=== PATIENT | male | born 1940 | race Caucasian/White ===

== ENCOUNTER → 2016-08-15 | Outpatient (CLI) | payer OTHER ==
[~2016-08-15] MED LIST: ACET-1311 PO; AMIT150T PO; APIX1TAB3 PO; CHOL1000 PO; CHOL2000 PO; CYAN100T PO; DIPH25CA65 PO; DOCU-94 PO; FOLI1TAB8 PO; FURO40TA3 PO; KETO2SHA TOP; MELA1TAB3 PO; METO25TA3 PO; MULT-330 PO; MULT-506 PO; NTRSLP4 SL; ONDA8TAB6 PO; PANT40TA PO; PROCRIT IM; PRT40 PO; RXC5 PO; SENN-65 PO; TAMS0.4C38 PO; TAMS0.4C59 PO
--- NOTE | 2016-08-15 11:58 | DIAGNOSTIC IMAGING REPORT ---
CT SOFT TISSUE NECK WITHOUT CT DOSE: 537.07 mGy.cm CLINICAL HISTORY: SWELLING RIGHT SIDE OF NECK TECHNIQUE: Imaging was performed without intravenous contrast. COMPARISON STUDY: CT scan of the cervical spine dated 07/02/2016 FINDINGS: Within the right lung apex medially, there is a partially solid and groundglass 14 mm apical pulmonary nodule. Peripheral tree-in-bud opacities in the right upper lobe, are likely inflammatory. This nodule remains similar in size from a CT scan performed February 2016 There is a partially calcified 3 cm nodule arising from the lower pole the right lobe of thyroid. No salivary gland masses are visualized. No mucosal space masses are visualized given the limitations of a noncontrast study. There is no pathologic adenopathy given the limitations of a noncontrast study. There is no evidence of airway compromise. There are no pathologic masses to correspond to the palpable abnormality within the right lateral neck. There is a severe scoliosis. 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 IMPRESSION: 1. There are no pathologic CT masses to correlate with the reported palpable abnormality within the right lateral neck 2. Relatively stable indeterminate partially solid and groundglass 14 mm right apical pulmonary nodule. Close follow-up recommended, as neoplasm cannot be excluded. 3. 3 cm right lobe thyroid nodule Electronically signed by: Jon Sesay M.D. 08/15/2016 11:56 AM
== END | disposition home or self-care (01) ==
LOC: C.CTS 10:57
PROVIDERS: ATTEND Hospitalist
DX: R22.1 Localized swelling, mass and lump, neck (principal); E04.1 Nontoxic single thyroid nodule

== ENCOUNTER → 2016-09-25 | Outpatient (CLI) | payer OTHER ==
[~2016-09-25] MED LIST changes: +FOLI1TAB7 PO; -FOLI1TAB8 PO
[2016-09-25 12:35] LABS: URINE APPEARANCE CLEAR (CLEAR); URINE BILIRUBIN NEG (NEG); URINE COLOR YELLOW; URINE NITRITE NEG (NEG); URINE PH 7.5 (4.5-7.5); URINE SPECIFIC GRAVITY 1.011 (1.000-1.030); UROBILINOGEN NEG (NEG); ZZUR CULT IF INDIC CLEAN CATCH NO
[2016-09-25 12:45] LABS: BLOOD UREA NITROGEN 21 mg/dl (7-18); BUN/CREATININE RATIO 12.6 (10-20); CALCIUM 11.1 mg/dl (8.5-10.1); CARBON DIOXIDE 31 mmol/L (21-32); CHLORIDE 106 mmol/L (98-107); GLUCOSE 88 mg/dl (70-99); MAGNESIUM 1.9 mg/dl (1.8-2.4); PHOSPHORUS 2.4 mg/dl (2.5-4.9); POTASSIUM 4.4 mmol/L (3.5-5.1); SODIUM 142 mmol/L (136-145)
[2016-09-25 12:54] LABS: MANUAL MICROSCOPIC REQUIRED? NO; REVIEW REQ? NO
[2016-09-25 13:04] LABS: URINE PROTIEN/CREAT RATIO 0.2 (0-0.2); URINE TOTAL PROTEIN 13.6 mg/dl (0-11.9)
== END | disposition home or self-care (01) ==
LOC: C.LABBFT 09:42
PROVIDERS: ATTEND Internal Medicine Nephrology
DX: N28.9 Disorder of kidney and ureter, unspecified (principal); E83.52 Hypercalcemia

== ENCOUNTER 2016-11-09 13:18 | Emergency (ER) | payer OTHER ==
[~2016-11-09] VITALS: Ht 170.2 cm; Wt 67.2 kg
[~2016-11-09 13:18] MED LIST changes: -CHOL2000 PO; -FURO40TA3 PO; -MULT-330 PO; -MULT-506 PO; -PANT40TA PO; -PROCRIT IM; -TAMS0.4C38 PO
[2016-11-09 13:21] VITALS: TEMP 36.4; Ht 170.2 cm; Wt 67.2 kg
[2016-11-09] MEDS ORDERED: TAMS0.4C38 PO (13:40)
[2016-11-09] MEDS ORDERED: MULT-330 PO (13:40)
[2016-11-09] MEDS ORDERED: FURO40TA3 PO (13:40)
--- NOTE | 2016-11-09 14:13 | DIAGNOSTIC IMAGING REPORT ---
CT HEAD WITHOUT CONTRAST (CT) CLINICAL HISTORY: Head pain. Closed head injury. COMPARISON STUDY: 07/02/2016 TECHNIQUE: Axial CT of the brain is performed from the vertex to the skull base. IV contrast was not administered for this examination. CT DOSE: 614.27 mGy.cm FINDINGS: No intra or extra-axial mass lesions are visualized. There is no CT evidence of acute cortical infarction. There is no evidence of midline shift. There is no acute hemorrhage. No calvarial fractures are visualized. There are patchy white matter hypodensities likely on a small vessel basis. There is no evidence of pathologic ventricular dilatation. There is no evidence of acute sinusitis IMPRESSION: No acute intracranial findings Electronically signed by: Jon Sesay M.D. 11/09/2016 2:12 PM Dictated Date/Time: 11/09/2016 2:11 PM
[2016-11-09 14:41] VITALS: BP 166/78; PULSE 70; O2SAT 97
--- NOTE | 2016-11-09 14:52 | EMERGENCY ROOM VISIT NOTE ---
ED Visit Note First contact with patient: 13:28 The patient was seen and examined with Conor Peace PA-C. I agree with the history, physical and findings. Please see the note for disposition and details.
--- NOTE | 2016-11-09 15:36 | EMERGENCY ROOM VISIT NOTE ---
History First contact with patient: 13:28 Chief Complaint: FALL Stated Complaint: FELL THIS MORNING, HIT BACK OF HEAD History of Present Illness The patient is a 76 year old male who presents to the Emergency Room with complaints of an injury after falling this morning in his kitchen. 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 There was no loss of consciousness. The patient denies any significant pain of his occiput. He does complain of a mildly developing posterior headache. The patient is currently on Eliquis for prior history of deep vein thromboses. Tetanus immunization is up-to-date. The patient currently denies any significant discomfort, including neck pain or back pain. Review of Systems 10 system review was performed and was negative except for pertinent positives and negatives as indicated in history of present illness Past Medical/Surgical History Medical Problems: (1) Asthma (2) Bronchitis (3) Cholecystectomy (4) DVT (deep venous thrombosis) (5) Elevated troponin (6) GI bleed (7) Hypercalcemia (8) Kidney stone Family History Cancer Diabetes mellitus Heart disease Hypertension Social History Smoking Status: Never Smoker Alcohol Use: none Drug Use: none Marital Status: Housing Status: lives with family Occupation Status: retired Current/Historical Medications Scheduled Amitriptyline Hcl (Amitriptyline Hcl), 150 MG PO HS Apixaban (Eliquis), 5 MG PO BID Cholecalciferol (Vitamin D3), 1,000 UNIT PO DAILY Cyanocobalamin (Vitamin B-12), 100 MCG PO DAILY Folic Acid (Folvite), 1 MG PO DAILY Furosemide (Lasix), 40 MG PO DAILY Ketoconazole (Topical) (Ketoconazole), 1 APPLN TOP QPM Metoprolol Succinate (Toprol Xl), 25 MG PO DAILY Multiple Minerals W/ Vitamins (Multi Sean Minerals), 1 TAB PO DAILY Pantoprazole (Pantoprazole Sodium), 40 MG PO BID Tamsulosin Hcl (Flomax), 0.4 MG PO DAILY Allergies Coded Allergies: No Known Allergies (Unverified , 11/09/16) Physical Exam Vital Signs Date Time Temp Pulse Resp B/P Pulse Ox O2 Delivery O2 Flow Rate FiO2 11/09/16 14:41 70 18 166/78 97 11/09/16 13:21 36.4 74 18 123/69 97 Room Air Physical Exam CONSTITUTIONAL: Healthy and well nourished. Alert and oriented X 3 with positive affect. Patient does not appear in any acute distress. HEENT: Examination shows mild soft tissue edema of the occiput. No lacerations or abrasions. Pupils equal, round and reactive. No epistaxis, subconjunctival hemorrhage or hemotympanum. NECK: Full active range of motion without discomfort. RESPIRATORY: Clear to auscultation bilaterally with no wheezing, crackles, rhonchi or stridor. CARDIOVASCULAR: Regular rate and rhythm with no murmurs, rubs or gallops. GASTROINTESTINAL: Bowel sounds present in all quadrants. MUSCULOSKELETAL: Full range of motion of all joints without discomfort. No tenderness to palpation through the thoracolumbar spine or ribs. Negative logroll. INTEGUMENTARY: No rash or other significant dermatologic conditions noted. NEUROLOGIC: No focal neurologic deficits noted. Upper and lower extremities are sensory intact. Medical Decision & Procedures ER Provider Diagnostic Interpretation: Noncontrast CT of the head is negative for fracture or intracranial bleed. Radiologist report is as follows: CT HEAD WITHOUT CONTRAST (CT) CLINICAL HISTORY: Head pain. Closed head injury. COMPARISON STUDY: 07/02/2016 TECHNIQUE: Axial CT of the brain is performed from the vertex to the skull base. IV contrast was not administered for this examination. CT DOSE: 614.27 mGy.cm FINDINGS: No intra or extra-axial mass lesions are visualized. There is no CT evidence of acute cortical infarction. There is no evidence of midline shift. There is no acute hemorrhage. No calvarial fractures are visualized. There are patchy white matter hypodensities likely on a small vessel basis. There is no evidence of pathologic ventricular dilatation. There is no evidence of acute sinusitis IMPRESSION: No acute intracranial findings ED Course Patient history and physical exam were performed. Nurse's notes were reviewed. Vital signs were reviewed and normal. The patient does not appear in any acute distress. The patient also refused any analgesics. Noncontrast CT of the head was normal. The patient was advised of his CT findings. He was instructed to rest and avoid strenuous activities. He was encouraged to follow- up with his PCP if the headache is not improving within the next 3-5 days. Return to the emergency department for any progressively worsening symptoms. Tylenol as needed for pain. The patient was instructed to return to the emergency department for any progressively worsening symptoms. The patient was happy with plan of care, voice understanding of all discharge instructions, and rated his headache a 2 out of 10 at the time of discharge. The patient was also seen and evaluated by Dr. Shafer, ED attending physician, who agrees with workup and plan of care. Medical Decision Impression Primary Impression: Concussion Additional Impression: Fall at home Departure Information Referrals Ryan Esparza M.D. (PCP) Patient Instructions My [facility] Problem Qualifiers
== END 2016-11-09 14:42 | disposition home or self-care (01) ==
LOC: C.EDB 13:20 → C.EDD 14:42
DX: S06.0X0A Concussion without loss of consciousness, initial encounter (principal); W19.XXXA Unspecified fall, initial encounter; Y92.010 Kitchen of single-family (private) house as the place of occurrence of the external cause; J45.909 Unspecified asthma, uncomplicated; Z86.718 Personal history of other venous thrombosis and embolism; Z87.442 Personal history of urinary calculi; Z80.9 Family history of malignant neoplasm, unspecified; Z83.3 Family history of diabetes mellitus; Z82.49 Family history of ischemic heart disease and other diseases of the circulatory system

== ENCOUNTER 2016-11-14 09:56 | Emergency (ER) | payer OTHER ==
[~2016-11-14] VITALS: Ht 170.2 cm; Wt 67.1 kg
[~2016-11-14 09:56] MED LIST changes: -ACET-1311 PO; -DIPH25CA65 PO; -DOCU-94 PO; +FURO40TA3 PO; -MELA1TAB3 PO; +MULT-330 PO; -NTRSLP4 SL; -ONDA8TAB6 PO; -RXC5 PO; -SENN-65 PO; +TAMS0.4C38 PO; -TAMS0.4C59 PO
[2016-11-14 10:06] VITALS: TEMP 36.3; Ht 170.2 cm; Wt 67.1 kg
--- NOTE | 2016-11-14 11:17 | DIAGNOSTIC IMAGING REPORT ---
CT OF THE CERVICAL SPINE CLINICAL HISTORY: Left neck pain status post trauma COMPARISON STUDY: 07/02/2016 CT DOSE: 395.94 mGy.cm TECHNIQUE: CT scan of the cervical spine was performed from the skull base to the thoracic inlet. Images are reviewed in the axial, sagittal, and coronal planes. IV contrast was not administered for this examination. FINDINGS: The visualized portions lung apices reveal no evidence of pneumothorax. There is an 11 mm right apical pulmonary nodule, unchanged from and neck CT scan dated August 15, 2016. There is a multinodular thyroid gland, including a partially calcified exophytic lower pole right lobe nodule measuring 3 cm. The bones are severely osteopenic. There is a severe levoscoliosis. 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 There is a C6-7 segmentation anomaly. There are multilevel degenerative changes No acute fractures or traumatic subluxations are visualized. IMPRESSION: 1. Multiple segmentation anomalies. Severe levoscoliosis. Severe osteopenia. No acute fractures or traumatic subluxations identified. 2. Stable multinodular thyroid gland including a 3 cm partially calcified right lobe thyroid nodule 3. Stable 11 mm right apical pulmonary nodule Electronically signed by: Jon Sesay M.D. 11/14/2016 11:16 AM Dictated Date/Time: 11/14/2016 11:06 AM
[2016-11-14 11:56] VITALS: BP 132/78; PULSE 90; O2SAT 99
[2016-11-14] MEDS ORDERED: PANT40TA PO (13:40)
[2016-11-14] MEDS ORDERED: MULT-506 PO (13:40)
[2016-11-14] MEDS ORDERED: CHOL2000 PO (13:40)
[2016-11-14] MEDS ORDERED: PROCRIT IM (13:47)
--- NOTE | 2016-11-14 17:52 | EMERGENCY ROOM VISIT NOTE ---
History Report prepared by Bethany: Patrick Holly Under the Supervision of: Dr. Deric Layc D.O. First contact with patient: 10:19 Chief Complaint: NECK PAIN Stated Complaint: HEAD PAIN-FELL LAST WEEK History of Present Illness The patient is a 76 year old male who presents to the Emergency Room with complaints of persistent left-sided neck pain that started around 5 days ago after falling in his house. He says that he hit his head on the floor. The pain is located on his left lateral neck. The patient notes that the pain is worsened with moving his head to the left. He had a CT scan of his head that afternoon following fall. He denies nausea, vomiting, headache, change in vision , chest pain, shortness of breath, or numbness or weakness in his legs/arms. The patient is on Eliquis for blood clots in his legs. Source of History: patient Onset: 5 days ago Position: neck (left side) Timing: other (persistent) Modifying Factors (Worsening): movement (of head to left) Associated Symptoms: No SOB, No headache, No nausea, No numbness (legs), No vomiting, No weakness (legs) Note: Associated symptoms: Denies change in vision. Review of Systems See HPI for pertinent positives & negatives. A total of 10 systems reviewed and were otherwise negative. Past Medical & Surgical Medical Problems: (1) Asthma (2) Bronchitis (3) Cholecystectomy (4) DVT (deep venous thrombosis) (5) Elevated troponin (6) GI bleed (7) Hypercalcemia (8) Kidney stone Family History Cancer Diabetes mellitus Heart disease Hypertension Social History Smoking Status: Former Smoker Alcohol Use: none Drug Use: none Marital Status: Housing Status: lives with family Occupation Status: retired Current/Historical Medications Scheduled Amitriptyline Hcl (Amitriptyline Hcl), 150 MG PO HS Apixaban (Eliquis), 5 MG PO BID Cholecalciferol (Vitamin D3), 1 CAP PO QAM Cyanocobalamin (Vitamin B-12), 100 MCG PO QAM Folic Acid (Folvite), 1 MG PO QAM Furosemide (Lasix), 40 MG PO QAM Ketoconazole (Topical) (Ketoconazole), 1 APPLN TOP QPM Metoprolol Succinate (Toprol Xl), 25 MG PO QAM Multivitamin (Multivitamin), 1 TAB PO QAM Pantoprazole (Protonix), 40 MG PO BID Tamsulosin Hcl (Flomax), 0.4 MG PO QAM [Procrit], 1 DOSE IM Q2WK Allergies Coded Allergies: No Known Allergies (Unverified , 11/14/16) Physical Exam Vital Signs Date Time Temp Pulse Resp B/P Pulse Ox O2 Delivery O2 Flow Rate FiO2 11/14/16 11:56 90 18 132/78 99 11/14/16 10:06 36.3 104 18 122/66 98 Room Air Physical Exam GENERAL: sitting up in bed, alert, well appearing, well nourished, no distress, non-toxic EYE EXAM: normal conjunctiva, PERRL and EOM's grossly intact OROPHARYNX: no exudate, no erythema, lips, buccal mucosa, and tongue normal and mucous membranes are moist NECK: minimal tenderness on left perispinal region, worsens with rotating head to left, no midline tenderness. LUNGS: Clear to auscultation. Normal chest wall mechanics HEART: no murmurs, S1 normal and S2 normal ABDOMEN: abdomen soft, non-tender, normo-active bowel sounds, no masses, no rebound or guarding. BACK: Back is symmetrical on inspection and there is no deformity, no midline tenderness, no CVA tenderness. SKIN: no rashes and no bruising UPPER EXTREMITIES: Flexion extension, shoulder, elbow, wrist, and grasp 5/5 bilateral, gross sensations intact. LOWER EXTREMITIES: No pitting edema. NEURO EXAM: Normal sensorium, cranial nerves II-XII grossly intact, no gross weakness of legs. Medical Decision & Procedures ER Provider Diagnostic Interpretation: CT:Per my review, radiologist interpretation. CT OF THE CERVICAL SPINE CLINICAL HISTORY: Left neck pain status post trauma COMPARISON STUDY: 07/02/2016 CT DOSE: 395.94 mGy.cm TECHNIQUE: CT scan of the cervical spine was performed from the skull base to the thoracic inlet. Images are reviewed in the axial, sagittal, and coronal planes. IV contrast was not administered for this examination. FINDINGS: The visualized portions lung apices reveal no evidence of pneumothorax. There is an 11 mm right apical pulmonary nodule, unchanged from and neck CT scan dated August 15, 2016. There is a multinodular thyroid gland, including a partially calcified exophytic lower pole right lobe nodule measuring 3 cm. The bones are severely osteopenic. There is a severe levoscoliosis. 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 There is a C6-7 segmentation anomaly. There are multilevel degenerative changes No acute fractures or traumatic subluxations are visualized. IMPRESSION: 1. Multiple segmentation anomalies. Severe levoscoliosis. Severe osteopenia. No acute fractures or traumatic subluxations identified. 2. Stable multinodular thyroid gland including a 3 cm partially calcified right lobe thyroid nodule 3. Stable 11 mm right apical pulmonary nodule Electronically signed by: Jon Sesay M.D. 11/14/2016 11:16 AM Dictated Date/Time: 11/14/2016 11:06 AM ED Course ED COURSE: Vital signs were reviewed and showed tachycardic vitals. The patients medical record was reviewed The above diagnostic studies were performed and reviewed. ED treatments and interventions as stated above. 1021: The patient was evaluated in room C9. A complete history and physical examination was performed. 1107: The patient is back from CT. 1143: Upon reevaluation, the patient is resting comfortably.I discussed my findings with the patient and he understands and agrees with the treatment plan. Based on the patients age, coexisting illnesses, exam and lab findings the decision to treat as an outpatient was made. The patient remained stable while under my care. The patient appeared well at the time of discharge. Medical Decision Differential diagnoses includes but is not limited to pneumonia, bronchitis, COPD/Asthma exacerbation, pneumothorax, pulmonary embolism, congestive heart failure, acute coronary syndrome Patient is a 76-year-old male who presents the ER following a fall several days ago and hitting his head. He does take a blood thinner. CT of his head was negative at that time. He is complaining of left lateral cervical pain. It is not midline. It does appear to be muscular. CT of his cervical spine was unremarkable. It did show pulmonary nodule and a thyroid nodule which I updated the patient and his in regards to. There is no change in size. Patient family were updated regards to findings. Did not place in cervical collar as pain is in the paraspinal musculature. Instructed to take Motrin or Tylenol as needed for pain. Discussed with Pt concerning signs and symptoms to watch out for. Pt was instructed to follow up with their PCP and discussed with the patient their option to return to the ED at anytime for persistent or worsening symptoms. The appropriate anticipatory guidance and out-patient management, including indications for return to the emergency department, were explained at length to the patient and understood. Impression Primary Impression: Neck strain Scribe Attestation The scribe's documentation has been prepared under my direction and personally reviewed by me in its entirety. I confirm that the note above accurately reflects all work, treatment, procedures, and medical decision making performed by me. Departure Information Dispostion Home / Self-Care Referrals Ryan Esparza M.D. (PCP) Forms HOME CARE DOCUMENTATION FORM, IMPORTANT VISIT INFORMATION, WORK / SCHOOL INSTRUCTIONS Patient Instructions My [facility], Neck Strain - [facility] Additional Instructions Please follow up with your primary care doctor with in the next 24 hours. Any worsening of your symptoms, please return to the ED immediately. This includes numbness in her hands, weakness in your arms or hands, worsening pain, or any other concerning signs or symptoms from your standpoint. If he continued to have symptoms over the next 3-5 days he will need repeat imaging by PCP. Problem Qualifiers Primary Impression: Neck strain Encounter type: initial encounter Qualified Codes: S16.1XXA - Strain of muscle, fascia and tendon at neck level, initial encounter
== END 2016-11-14 11:58 | disposition home or self-care (01) ==
LOC: C.EDB 09:58 → C.EDC 11:58
DX: S16.1XXA Strain of muscle, fascia and tendon at neck level, initial encounter (principal); W19.XXXA Unspecified fall, initial encounter; Y92.019 Unspecified place in single-family (private) house as the place of occurrence of the external cause; J45.909 Unspecified asthma, uncomplicated; Z86.718 Personal history of other venous thrombosis and embolism; Z87.442 Personal history of urinary calculi; E83.52 Hypercalcemia; Z80.9 Family history of malignant neoplasm, unspecified; Z83.3 Family history of diabetes mellitus; Z82.49 Family history of ischemic heart disease and other diseases of the circulatory system; Z87.891 Personal history of nicotine dependence; Z79.01 Long term (current) use of anticoagulants; Z79.899 Other long term (current) drug therapy

== ENCOUNTER → 2016-11-20 | Day surgery (SDC) | payer OTHER ==
[2016-11-14 13:45] VITALS: Ht 170.2 cm; Wt 67.3 kg
[~2016-11-20] VITALS: Ht 170.2 cm; Wt 67.3 kg
[~2016-11-20] MED LIST changes: -CHOL1000 PO; +CHOL2000 PO; +LIDOCAINE HCL 2% 2 ML VIAL (20MG/ML) ONE; -MULT-330 PO; +MULT-506 PO; +PANT40TA PO; +PROCRIT IM; +PROPOFOL IV EMULSION 10 MG/ML 20 ML VIAL IV ONE; -PRT40 PO; +SODIUM CHLORIDE 0.9% 500ML 500 ML IV ONE
--- NOTE | 2016-11-20 08:43 | Endo History and Physical ---
History & Physical Date of Service: Nov 20, 2016. 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 presenting for f/u EGD Past Medical History Male Genitourinary Prob., Anxiety, Thrombophlebitis Past Surgical History Hx Cardiac Surgery: No Hx Internal Defibrillator: No Hx Pacemaker: No Hx Abdominal Surgery: Yes ([facility], 1968 PARTIAL GASTRECTOMY R/T ULCER) Hx of Implantable Prosthesis: No Hx Post-Op Nausea and Vomiting: No Hx Cancer Surgery: Yes (PARTIAL GASTRECTOMY) Hx Thoracic Surgery: No Hx Orthopedic: Yes (LT HIP BREAK REPAIR WITH PIN) Hx Urinary Tract Surgery: No Family History Colon CA Social History Smoking Status: Former Smoker Hx Substance Use: No Hx Alcohol Use: Yes (QUIT 1986) Allergies Coded Allergies: No Known Allergies (Verified , 11/20/16) Current Medications Reported Home Medications Medications Dose Route/Sig Max Daily Dose Days Date Category Dose Instructions [Procrit] 1 Dose IM Q2WK 11/14/16 Reported Protonix (Pantoprazole Sodium) 40 Mg Tab 40 Mg PO BID 11/14/16 Reported Vitamin D3 (Cholecalciferol) 2,000 Unit Cap 1 Cap PO QAM 11/14/16 Reported Multivitamin (Multivitamins) Tab 1 Tab PO QAM 11/14/16 Reported Flomax (Tamsulosin Hcl) 0.4 Mg Cap 0.4 Mg PO QAM 11/09/16 Reported Lasix (Furosemide) 40 Mg Tab 40 Mg PO QAM 11/09/16 Reported Folvite (Folic Acid) 1 Mg Tab 1 Mg PO QAM 07/02/16 Reported Vitamin B-12 (Cyanocobalamin) 100 Mcg Tab 100 Mcg PO QAM 07/02/16 Reported Eliquis (Apixaban) 5 Mg Tab 5 Mg PO BID 07/02/16 Reported Amitriptyline Hcl 150 Mg Tab 150 Mg PO HS 07/02/16 Reported Toprol Xl (Metoprolol Succinate) 25 Mg Tabcr 25 Mg PO QAM 07/02/16 Reported Ketoconazole (Ketoconazole (Topical)) 2 % Sha 1 Appln TOP QPM 04/30/15 Reported APPLY TO FACE Vital Signs Weight (Kilograms): 67.27 Height (Feet): 5 Height (Inches): 7 Physical Exam General Appearance: WD/WN, no apparent distress Respiratory/Chest: Auscultation: breath sounds normal, CTA except as noted Cardiovascular: Apical Impulse: not displaced Heart Auscultation: RRR, normal S1, normal S2 Abdomen: Inspection & Palpation: soft, non-distended Assessment and Plan Plan for EGD for gastric cancer surveillance
[2016-11-20 09:25] VITALS: TEMP 36.9
--- NOTE | 2016-11-20 10:14 | GI REPORT ---
Procedure Date: 11/20/2016 9:33 AM Procedure: Upper GI endoscopy Indications: Surveillance for malignancy due to personal history of gastric adenoma Medicines: General Anesthesia Complications: No immediate complications. Estimated blood loss: None. Estimated Blood Loss: Estimated blood loss: none. Procedure: Pre-Anesthesia Assessment: - Pre-Anesthesia Assessment: - Prior to the procedure, a History and Physical was performed, and patient medications, allergies and sensitivities were reviewed. The patient's tolerance of previous anesthesia was reviewed. Please see KIDOZ for complete details. - The risks and benefits of the procedure and the sedation options and risks were discussed with the patient. All questions were answered and informed consent was obtained. - Patient identification and proposed procedure were verified prior to the procedure by the physician and the nurse. The procedure was verified in the pre-procedure area in the procedure room. After obtaining informed consent, the endoscope was passed carefully and meticuously under direct vision and only advanced when the lumen was clearly identified, C02 insuflation was utilized throughout the entirity of the procedure. Throughout the procedure, the patient's blood pressure, pulse, and oxygen saturations were monitored continuously. After obtaining informed consent, the endoscope was passed under direct vision. Throughout the procedure, the patient's blood pressure, pulse, and oxygen saturations were monitored continuously. The scope was introduced through the mouth, and advanced to the body of the stomach. The upper GI endoscopy was accomplished without difficulty. The patient tolerated the procedure well. Findings: The examined esophagus was normal. A large amount of food (residue) was found in the gastric body. This obscured the views but no gross lesions seen, however, very limited exam and procedure was aborted to minimize risk of aspiration. Impression: - Normal esophagus. - A large amount of food (residue) in the stomach. - No specimens collected. Recommendation: - Discharge patient to home (with escort). - Return to referring physician as previously scheduled. - Continue present medications. - Patient is relatively debhilitated now, if repeat procedure is sought, would have liquids only day prior to repeat. James Hernández MD 11/20/2016 10:14:06 AM This report has been signed electronically. Note Initiated On: 11/20/2016 9:33 AM I attest to the content of the Intraoperative Record and orders documented therein, exceptions below
--- NOTE | 2016-11-20 10:15 | Discharge Instructions ---
Endoscopy Patient Instructions Date / Procedure(s) Performed Nov 20, 2016. EGD Allergy Information Coded Allergies: No Known Allergies (Verified , 11/20/16) Discharge Date / Findings Nov 20, 2016. Significant amount of food in stomach limiting views-suboptimal exam Medication Instructions Stopped Medication(s): stopped Eliquis on November 14 Provider Instructions Activity Restrictions - No exercising or heavy lifting for 24 hours. - Do not drink alcohol the day of the procedure. - Do not drive a car or operate machinery until the day after the procedure. - Do not make any important decisions or sign important papers in 24 hours after the procedure. Following Day: - Return to full activity which may include returning to work/school. Diet Start your diet with liquids and light foods (jello, soup, juice, toast). Then eat your usual diet if not nauseated. Treatment For Common After Affects For mild abdominal pain, bloating, or excessive gas: - Rest - Eat lightly - Lie on right side Follow-Up Information Follow-up with Dr. Ryan Esparza as scheduled Anesthesia Information What You Should Know You have had a procedure that required some medicine to reduce anxiety and discomfort. This treatment is called moderate sedation. After receiving the treatment, you may be sleepy, but you will be able to breathe on your own. The effects of the treatment may last for several hours. Follow these instructions along with Activity/Diet recommendations noted above: * Do NOT do anything where dizziness or clumsiness would be dangerous. * Rest quietly at home today, then you can be up and about tomorrow. * Have a responsible person stay with you the rest of today. * You may have had an I.V. today. If so, you may take the dressing off later today. Recommendations Call your doctor if: * Trouble breathing * Continuous vomiting for more than 24 hours * Temperature above 101 degrees * Severe abdominal pain or bloating * Pain not relieved by pain medicine ordered * There is increased drainage or redness from any incision * A large amount of rectal bleeding greater than 2-3 tablespoons. (If you had a polyp/s removed or have hemorrhoids, a small amount of blood - from the rectum is to be expected.) * You have any unanswered questions or concerns. IN THE EVENT OF A SERIOUS EMERGENCY, GO TO THE NEAREST EMERGENCY ROOM Your discharge instructions were prepared by provider James Hernández. Patient Instructions Signature Page Reji Rock Patient (or Guardian) Signature/Date: I have read and understand the instructions given to me by my caregivers. Caregiver/RN/Doctor Signature/Date: The above-named patient and/or guardian has received patient instructions on this date. + Original Patient Signature Page (only) stays with chart. Please make copy for patient.
[2016-11-20 10:30] VITALS: BP 124/61; PULSE 71; O2SAT 99
--- NOTE | 2016-11-20 10:33 | Anesthesiology Progress Note ---
Anesthesia Post Op Note Date & Time Nov 20, 2016 at 10:32 Vital Signs Pain Intensity: 0 Vital Signs Past 12 Hours Date Time Temp Pulse Resp B/P Pulse Ox O2 Delivery O2 Flow Rate FiO2 11/20/16 10:15 78 20 131/59 97 Room Air 11/20/16 10:00 78 20 120/66 98 Room Air 11/20/16 09:25 36.9 82 20 147/89 98 Room Air Notes Mental Status: alert / awake / arousable, participated in evaluation Pt Amnestic to Procedure: Yes Nausea / Vomiting: adequately controlled Pain: adequately controlled Airway Patency, RR, SpO2: stable & adequate BP & HR: stable & adequate Hydration State: stable & adequate Anesthetic Complications: no major complications apparent
== END | disposition home or self-care (01) ==
LOC: C.GI 08:48
PROVIDERS: ATTEND Internal Medicine
DX: Z09 Encounter for follow-up examination after completed treatment for conditions other than malignant neoplasm (principal); Z08 Encounter for follow-up examination after completed treatment for malignant neoplasm; I12.9 Hypertensive chronic kidney disease with stage 1 through stage 4 chronic kidney disease, or unspecified chronic kidney disease; N18.9 Chronic kidney disease, unspecified; J44.9 Chronic obstructive pulmonary disease, unspecified; F32.9 Major depressive disorder, single episode, unspecified; N40.0 Benign prostatic hyperplasia without lower urinary tract symptoms; K21.9 Gastro-esophageal reflux disease without esophagitis; Z98.41 Cataract extraction status, right eye; Z98.42 Cataract extraction status, left eye; Z79.899 Other long term (current) drug therapy; Z68.23 Body mass index [BMI] 23.0-23.9, adult; Z90.3 Acquired absence of stomach [part of]; Z90.49 Acquired absence of other specified parts of digestive tract; Z98.890 Other specified postprocedural states; Z87.891 Personal history of nicotine dependence; Z86.718 Personal history of other venous thrombosis and embolism; Z80.0 Family history of malignant neoplasm of digestive organs

== ENCOUNTER → 2016-11-23 | Outpatient (CLI) | payer OTHER ==
[~2016-11-23] MED LIST changes: -LIDOCAINE HCL 2% 2 ML VIAL (20MG/ML) ONE; -PROPOFOL IV EMULSION 10 MG/ML 20 ML VIAL IV ONE; -SODIUM CHLORIDE 0.9% 500ML 500 ML IV ONE
[2016-11-23 12:13] LABS: BASO % 0.4 %; BASO ABS # 0.02 K/uL (0-0.2); COMPLETE YES; EOS % 4.2 %; HEMATOCRIT 39.8 % (42-52); IG% 0.2 %; LYMPH % 27.4 %; LYMPH ABS # 1.37 K/uL (1.2-3.4); MEAN CELL VOLUME 94.5 fL (80-100); MEAN CORPUSCULAR HEMOGLOBIN 29.7 pg (25-34); MEAN CORPUSCULAR HGB CONC 31.4 g/dl (32-36); MEAN PLATELET VOLUME 10.9 fL (7.4-10.4); MONO % 5.6 %; NEUT % 62.2 %; PLATELET COUNT 335 K/uL (130-400); RED BLOOD COUNT 4.21 M/uL (4.7-6.1)
[2016-11-23 12:26] LABS: BLOOD UREA NITROGEN 24 mg/dl (7-18); BUN/CREATININE RATIO 17.4 (10-20); CARBON DIOXIDE 32 mmol/L (21-32); CHLORIDE 107 mmol/L (98-107); GLUCOSE 91 mg/dl (70-99); MAGNESIUM 1.9 mg/dl (1.8-2.4); POTASSIUM 4.4 mmol/L (3.5-5.1); SODIUM 141 mmol/L (136-145)
[2016-11-23 12:30] LABS: FERRITIN 52.6 ng/ml (8.0-388.0); PHOSPHORUS 2.8 mg/dl (2.5-4.9); TOTAL IRON BINDING CAPACITY 240 mcg/dl (250-450)
[2016-11-23 15:46] LABS: CALCIUM 11.5 mg/dl (8.5-10.1)
== END | disposition home or self-care (01) ==
LOC: C.LABBFT 09:51
PROVIDERS: ATTEND Internal Medicine Nephrology
DX: D50.8 Other iron deficiency anemias (principal)

== ENCOUNTER → 2017-01-19 | Outpatient (CLI) | payer OTHER ==
[2017-01-19 12:40] LABS: BLOOD UREA NITROGEN 30 mg/dl (7-18); BUN/CREATININE RATIO 23.2 (10-20); CALCIUM 10.5 mg/dl (8.5-10.1); CARBON DIOXIDE 25 mmol/L (21-32); CHLORIDE 109 mmol/L (98-107); GLUCOSE 86 mg/dl (70-99); POTASSIUM 4.3 mmol/L (3.5-5.1); SODIUM 144 mmol/L (136-145)
[2017-01-19 12:41] LABS: PHOSPHORUS 2.8 mg/dl (2.5-4.9)
== END | disposition home or self-care (01) ==
LOC: C.LABBFT 08:30
PROVIDERS: ATTEND Internal Medicine Nephrology
DX: E21.3 Hyperparathyroidism, unspecified (principal)

== ENCOUNTER → 2017-03-28 | Outpatient (CLI) | payer OTHER ==
[2017-03-28 12:16] LABS: BASO % 0.3 %; BASO ABS # 0.02 K/uL (0-0.2); COMPLETE YES; EOS % 3.8 %; HEMATOCRIT 38.4 % (42-52); LYMPH % 26.6 %; LYMPH ABS # 1.62 K/uL (1.2-3.4); MEAN CORPUSCULAR HEMOGLOBIN 30.3 pg (25-34); MEAN CORPUSCULAR HGB CONC 31.3 g/dl (32-36); MEAN PLATELET VOLUME 11.5 fL (7.4-10.4); MONO % 6.2 %; NEUT % 63.1 %; PLATELET COUNT 202 K/uL (130-400); RED BLOOD COUNT 3.96 M/uL (4.7-6.1)
[2017-03-28 12:32] LABS: ALB/GLOB RATIO 0.8 (0.9-2); ALKALINE PHOSPHATASE 178 U/L (45-117); ALT/SGPT 25 U/L (12-78); AST/SGOT 24 U/L (15-37); BLOOD UREA NITROGEN 31 mg/dl (7-18); BUN/CREATININE RATIO 20.6 (10-20); CALCIUM 10.8 mg/dl (8.5-10.1); CARBON DIOXIDE 29 mmol/L (21-32); CHLORIDE 108 mmol/L (98-107); FERRITIN 49.4 ng/ml (8.0-388.0); GLUCOSE 92 mg/dl (70-99); POTASSIUM 4.3 mmol/L (3.5-5.1); SODIUM 142 mmol/L (136-145); TOTAL IRON BINDING CAPACITY 288 mcg/dl (250-450)
--- NOTE | 2017-04-20 13:12 | CODING QUERY NO DIAGNOSIS ---
TREATMENT RENDERED WITHOUT A DIAGNOSIS To promote full compliance with coding requirements relating to patient care, physician participation is requested in all cases of tile fitter uncertainty. Please assist us with providing a diagnosis/symptom for the test(s) below: A diagnosis/symptom was not documented on your Order. A valid diagnosis/symptom is required to bill all insurances. Please remember that we are unable to code a diagnosis of rule out, probable, possible, questionable, or suspected. Tests that require a diagnosis: DOS: 03/28 * IRONE (FE) DIAGNOSIS: * CBC W/ AUTO DIFF DIAGNOSIS: * LDH DIAGNOSIS: * VITAMIN B12 DIAGNOSIS: * CMP DIAGNOSIS: * FERRITIN DIAGNOSIS: * TOTAL IRON BINDING CAPACITY DIAGNOSIS: Provider Signature: Date: Thank you Celi De Santiago Property Partner Information Management Once completed, please kindly fax back to [phone] For questions please call [phone]
== END | disposition home or self-care (01) ==
LOC: C.LABBFT 09:22
PROVIDERS: ATTEND Nurse Practitioner Family
DX: D50.9 Iron deficiency anemia, unspecified (principal)

== ENCOUNTER → 2017-04-27 | Outpatient (CLI) | payer OTHER ==
[2017-04-27 13:29] LABS: BLOOD UREA NITROGEN 28 mg/dl (7-18); BUN/CREATININE RATIO 18.3 (10-20); CALCIUM 11.3 mg/dl (8.5-10.1); CARBON DIOXIDE 30 mmol/L (21-32); CHLORIDE 107 mmol/L (98-107); GLUCOSE 94 mg/dl (70-99); PHOSPHORUS 2.7 mg/dl (2.5-4.9); POTASSIUM 4.5 mmol/L (3.5-5.1); SODIUM 140 mmol/L (136-145)
== END | disposition home or self-care (01) ==
LOC: C.LABBFT 08:57
PROVIDERS: ATTEND Internal Medicine Nephrology
DX: N18.3 Chronic kidney disease, stage 3 (moderate) (principal)

== ENCOUNTER → 2017-05-07 | Outpatient (CLI) | payer OTHER ==
--- NOTE | 2017-05-07 09:42 | DIAGNOSTIC IMAGING REPORT ---
(CHEST) THORAX WITHOUT CT DOSE: 365.69 mGycm CLINICAL HISTORY: 77 years-old Male with PULMONARY NODULES. Pulmonary nodule follow-up study. No acute chest complaints are reported. TECHNIQUE: Multiaxial CT images of the chest were performed without contrast. A dose lowering technique was utilized adhering to the principles of ALARA. COMPARISON: Chest CT 02/27/2016 and 02/21/2016. FINDINGS: Large peripherally calcified heterogeneous nodule within the region of the inferior right thyroid lobe is seen, 2.9 x 2.6 cm which appears unchanged from comparison. No bulky adenopathy of the chest identified. The heart is moderately enlarged with coronary arterial calcifications. Atherosclerotic plaquing involves the thoracic aorta. There is mild dilation of the pulmonary arterial tree suggesting underlying pulmonary arterial hypertension. There is a moderate sized right and trace left pleural effusion. Pleural effusion has decreased in size on the left and the right-sided effusion is new. There is no pneumothorax. Pleural-based pulmonary nodule of the medial aspect apical segment right upper lobe is again seen, 1.4 x 0.9 cm demonstrating apparent internal and peripheral cystic foci, previously 1.3 x 1.0 cm on study dated 02/21/2016. Additionally, there is redemonstration of multiple noncalcified pulmonary nodules, notably within the apical segment right upper lobe measuring up to 5 mm. There is no significant change from comparison study. No new suspicious pulmonary nodules are identified. Subsegmental dependent consolidative opacities the lung bases, right greater the left suggest atelectasis. There is mild bronchial wall thickening of the lung bases suggesting bronchitis. IVC filter is noted. Posterior changes of the stomach are seen. Apical thinning involves the kidneys bilaterally. Bones are moderately demineralized. Increased kyphotic curvature of the midthoracic spine is again seen which is unchanged with bony fusion seen at the T7-T9 levels. IMPRESSION: 1. Redemonstration of a pleural-based pulmonary nodule involving the medial aspect of the apical segment right upper lobe, 1.4 x 0.9 cm without significant change from study dated 02/21/2016. Additional follow-up is recommended to document stability. 2. Multiple additional noncalcified pulmonary nodules bilaterally measuring in the 5 mm range are unchanged suggesting benign etiology. 3. Moderate right and trace left pleural effusions with subsegmental bibasilar opacities suggesting atelectasis. Please refer to below summary of Fleischner criteria recommendations for follow-up of incidental CT nodules (Ida Frias, Guidelines for management of small pulmonary nodules detected on CT scans: A statement from the Fleischner Society, Radiology 237: [phone].) SOLID NODULES Solitary nodule size: <6 mm * Low risk patients: no follow-up needed * high risk patients: optional CT at 12 months Solitary nodule size: 6-8 mm * Low risk patients: follow-up at 6-12 months, then consider further follow-up at 18-24 months * high risk patients: initial follow-up CT at 6-12 months and then at 18-24 months if no change Solitary nodule size: >8 mm * either low or high risk patients - consider follow-up CT at 3 months, and/or CT-PET, and/or biopsy Multiple nodules size: <6 mm * Low risk patients: no routine follow-up * high risk patients: optional CT at 12 months Multiple nodules size: 6-8 mm * Low risk patients: follow-up at 3-6 months, then consider further follow-up at 18-24 months * high risk patients: follow-up at 3-6 months, then at 18-24 months if no change Multiple nodules size: >8 mm * Low risk patients: follow-up at 3-6 months, then consider further follow-up at 18-24 months * high risk patients: follow-up at 3-6 months, then at 18-24 months if no change Note: newly detected indeterminate nodule in persons 35 years of age or older. * Low risk patients: minimal or absent history of smoking and/or other known risk factors * high risk patients: history of smoking or of other known risk factors (e.g. first degree relative with lung cancer, or exposure to asbestos, radon, uranium) * if a nodule up to 8 mm is partly solid or is ground glass further follow-up is required after 24 months to exclude possible slow growing adenocarcinoma (BABS) SUBSOLID NODULES Solitary pure ground-glass nodule * nodule size <6 mm - no CT follow-up required * nodule size >=6 mm - follow-up CT at 6-12 months, then every 2 years until 5 years Solitary part-solid nodule * nodule size <6 mm - no CT follow-up required * nodule size >=6 mm - follow-up CT at 3-6 months. If unchanged, and solid component remains <6 mm, then annual follow-up for 5 years Multiple subsolid nodules * nodule size <6 mm - follow-up CT at 3-6 months, consider further follow-up at 2 and 4 years if stable * nodule size >=6 mm - follow-up CT at 3-6 months, subsequent management based on the most suspicious nodule(s) The above report was generated using voice recognition software. It may contain grammatical, syntax or spelling errors. Electronically signed by: Albaro Xiong M.D. 05/07/2017 9:41 AM Dictated Date/Time: 05/07/2017 9:31 AM
== END | disposition home or self-care (01) ==
LOC: C.CTS 09:11
PROVIDERS: ATTEND Physician Assistant Medical
DX: R91.8 Other nonspecific abnormal finding of lung field (principal); J90 Pleural effusion, not elsewhere classified

== ENCOUNTER → 2017-05-25 | Outpatient (CLI) | payer OTHER ==
[2017-05-25 12:12] LABS: BASO % 0.3 %; BASO ABS # 0.02 K/uL (0-0.2); COMPLETE YES; EOS % 3.6 %; HEMATOCRIT 41.9 % (42-52); IG% 0.2 %; LYMPH % 24.9 %; LYMPH ABS # 1.47 K/uL (1.2-3.4); MEAN CELL VOLUME 95.7 fL (80-100); MEAN CORPUSCULAR HEMOGLOBIN 30.4 pg (25-34); MEAN CORPUSCULAR HGB CONC 31.7 g/dl (32-36); MEAN PLATELET VOLUME 11.6 fL (7.4-10.4); MONO % 5.6 %; NEUT % 65.4 %; PLATELET COUNT 199 K/uL (130-400); RED BLOOD COUNT 4.38 M/uL (4.7-6.1); WHITE BLOOD COUNT 5.91 K/uL (4.8-10.8)
== END | disposition home or self-care (01) ==
LOC: C.LAB1850 10:46
PROVIDERS: ATTEND Physician Assistant Medical
DX: K92.1 Melena (principal)

== ENCOUNTER → 2017-07-03 | Outpatient (CLI) | payer OTHER ==
[2017-07-03 16:55] LABS: BASO % 0.2 %; BASO ABS # 0.01 K/uL (0-0.2); COMPLETE YES; EOS % 1.4 %; HEMATOCRIT 41.1 % (42-52); LYMPH ABS # 0.76 K/uL (1.2-3.4); MEAN CELL VOLUME 97.4 fL (80-100); MEAN CORPUSCULAR HEMOGLOBIN 31.3 pg (25-34); MEAN CORPUSCULAR HGB CONC 32.1 g/dl (32-36); MEAN PLATELET VOLUME 11.4 fL (7.4-10.4); MONO % 3.6 %; NEUT % 81.8 %; PLATELET COUNT 206 K/uL (130-400); RED BLOOD COUNT 4.22 M/uL (4.7-6.1); WHITE BLOOD COUNT 5.86 K/uL (4.8-10.8)
[2017-07-03 17:05] LABS: BLOOD UREA NITROGEN 31 mg/dl (7-18); BUN/CREATININE RATIO 16.7 (10-20); CALCIUM 10.8 mg/dl (8.5-10.1); CARBON DIOXIDE 28 mmol/L (21-32); CHLORIDE 104 mmol/L (98-107); CREATININE 1.83 mg/dl (0.60-1.40); GLUCOSE 163 mg/dl (70-99); MAGNESIUM 2.1 mg/dl (1.8-2.4); PHOSPHORUS 2.7 mg/dl (2.5-4.9); POTASSIUM 4.7 mmol/L (3.5-5.1); SODIUM 141 mmol/L (136-145)
== END | disposition home or self-care (01) ==
LOC: C.LABBFT 13:08
PROVIDERS: ATTEND Internal Medicine Nephrology
DX: E83.52 Hypercalcemia (principal)

== ENCOUNTER → 2017-07-16 | Outpatient (CLI) | payer OTHER ==
[2017-07-16 17:59] LABS: BLOOD UREA NITROGEN 33 mg/dl (7-18); BUN/CREATININE RATIO 15.9 (10-20); CALCIUM 10.2 mg/dl (8.5-10.1); CARBON DIOXIDE 27 mmol/L (21-32); CHLORIDE 105 mmol/L (98-107); CREATININE 2.05 mg/dl (0.60-1.40); GLUCOSE 338 mg/dl (70-99); POTASSIUM 4.5 mmol/L (3.5-5.1); SODIUM 136 mmol/L (136-145)
[2017-07-16 18:00] LABS: PHOSPHORUS 2.3 mg/dl (2.5-4.9)
[2017-07-16 18:09] LABS: BETA-HYDROXYBUTYRATE 1.11 mg/dL (0.2-2.81)
== END | disposition home or self-care (01) ==
LOC: C.LABBFT 10:42
PROVIDERS: ATTEND Internal Medicine Nephrology
DX: N18.3 Chronic kidney disease, stage 3 (moderate) (principal)

== ENCOUNTER → 2017-07-17 | Outpatient (CLI) | payer OTHER ==
[2017-07-17 12:17] LABS: URINE APPEARANCE CLEAR (CLEAR); URINE BILIRUBIN NEG (NEG); URINE COLOR YELLOW; URINE NITRITE NEG (NEG); URINE SPECIFIC GRAVITY 1.014 (1.000-1.030); UROBILINOGEN NEG (NEG); ZZUR CULT IF INDIC CLEAN CATCH NO
[2017-07-17 12:21] LABS: MANUAL MICROSCOPIC REQUIRED? NO; REVIEW REQ? NO
== END | disposition home or self-care (01) ==
LOC: C.LABBFT 09:04
PROVIDERS: ATTEND Internal Medicine Nephrology
DX: N18.3 Chronic kidney disease, stage 3 (moderate) (principal)

== ENCOUNTER → 2017-09-04 | Outpatient (CLI) | payer OTHER ==
[~2017-09-04] MED LIST changes: -FOLI1TAB7 PO; +FOLI1TAB8 PO
[2017-09-04 13:54] LABS: BLOOD UREA NITROGEN 36 mg/dl (7-18); CALCIUM 10.6 mg/dl (8.5-10.1); CARBON DIOXIDE 30 mmol/L (21-32); GLUCOSE 145 mg/dl (70-99); POTASSIUM 4.7 mmol/L (3.5-5.1); SODIUM 139 mmol/L (136-145)
== END | disposition home or self-care (01) ==
LOC: C.LABBFT 10:46
PROVIDERS: ATTEND Internal Medicine Nephrology
DX: E83.52 Hypercalcemia (principal)

== ENCOUNTER → 2017-09-25 | Outpatient (CLI) | payer OTHER ==
[~2017-09-25] MED LIST changes: -METO25TA3 PO; +METO25TA4 PO
[2017-09-25 12:52] LABS: BASO % 0.4 %; BASO ABS # 0.02 K/uL (0-0.2); EOS % 0.9 %; EOS ABS # 0.05 K/uL (0-0.5); HEMATOCRIT 44.1 % (42-52); HEMOGLOBIN 13.7 g/dL (14.0-18.0); IG# 0.01 K/uL (0.00-0.02); LYMPH % 13.8 %; LYMPH ABS # 0.74 K/uL (1.2-3.4); MEAN CELL VOLUME 97.8 fL (80-100); MEAN CORPUSCULAR HEMOGLOBIN 30.4 pg (25-34); MEAN CORPUSCULAR HGB CONC 31.1 g/dl (32-36); MEAN PLATELET VOLUME 11.8 fL (7.4-10.4); MONO % 3.2 %; MONO ABS # 0.17 K/uL (0.11-0.59); NEUT % 81.5 %; NEUT ABS # 4.39 K/uL (1.4-6.5); PLATELET COUNT 176 K/uL (130-400); RED CELL DISTRIBUTION WIDTH CV 14.6 % (11.5-14.5); WHITE BLOOD COUNT 5.38 K/uL (4.8-10.8)
[2017-09-25 13:21] LABS: ALBUMIN 3.3 gm/dl (3.4-5.0); BLOOD UREA NITROGEN 33 mg/dl (7-18); CALCIUM 10.8 mg/dl (8.5-10.1); CARBON DIOXIDE 30 mmol/L (21-32); CREATININE 2.03 mg/dl (0.60-1.40); GLUCOSE 177 mg/dl (70-99); POTASSIUM 4.7 mmol/L (3.5-5.1); SODIUM 139 mmol/L (136-145)
[2017-09-25 13:24] LABS: ALKALINE PHOSPHATASE 149 U/L (45-117); ALT/SGPT 25 U/L (12-78); AST/SGOT 22 U/L (15-37); TOTAL PROTEIN 7.1 gm/dl (6.4-8.2)
== END | disposition home or self-care (01) ==
LOC: C.LABBFT 10:48
PROVIDERS: ATTEND Nurse Practitioner Family
DX: D50.9 Iron deficiency anemia, unspecified (principal); E53.9 Vitamin B deficiency, unspecified; E83.52 Hypercalcemia; D63.1 Anemia in chronic kidney disease

== ENCOUNTER 2017-09-26 18:10 | Emergency (ER) | payer OTHER ==
[~2017-09-26] VITALS: Ht 167.6 cm; Wt 69.6 kg
[2017-09-26 18:26] VITALS: TEMP 36.7; Ht 167.6 cm; Wt 69.6 kg
--- NOTE | 2017-09-26 19:51 | DIAGNOSTIC IMAGING REPORT ---
R SHOULDER MIN 2 VIEWS ROUTINE CLINICAL HISTORY: rt shoulder pain after fall trauma. Pain. COMPARISON: None. DISCUSSION: The bones and joint spaces appear intact. There is no evidence of fracture, dislocation or bony disease. Moderate degenerative change. Possible right pleural effusion which has been known on prior CT exams. IMPRESSION: No acute process the right shoulder. Degenerative change. The above report was generated using voice recognition software. It may contain grammatical, syntax or spelling errors. Electronically signed by: Ignacio Kaplan M.D. 09/26/2017 7:50 PM Dictated Date/Time: 09/26/2017 7:48 PM
--- NOTE | 2017-09-26 20:01 | DIAGNOSTIC IMAGING REPORT ---
HEAD WITHOUT CONTRAST (CT) CT DOSE: 614.27 mGy.cm HISTORY: Trauma fall on anticoagulation TECHNIQUE: Multiaxial CT images of the head were performed without the use of intravenous contrast. A dose lowering technique was utilized adhering to the principles of ALARA. Comparison: 11/09/2016 Findings: The paranasal sinuses and mastoid air cells are clear. The calvarium and skull base are intact. The ventricles and sulci are within normal limits. There is no mass, hematoma, midline shift, or acute infarct. Age-related atrophy and chronic small vessel change Impression: No acute intracranial abnormality. Age-related atrophy and chronic small vessel change The above report was generated using voice recognition software. It may contain grammatical, syntax or spelling errors. Electronically signed by: Ignacio Kaplan M.D. 09/26/2017 8:00 PM Dictated Date/Time: 09/26/2017 7:59 PM
[2017-09-26 20:53] VITALS: BP 126/66; PULSE 72; O2SAT 94
--- NOTE | 2017-09-26 21:14 | EMERGENCY ROOM VISIT NOTE ---
History Report prepared by Bethany: Kaur Mccoy Under the Supervision of: Dr. Tomas Fiore D.O. First contact with patient: 19:03 Chief Complaint: FALL Stated Complaint: FELL, NECK PAIN History of Present Illness The patient is a 77 year old male who presents to the Emergency Room with complaints of an episode of fall ANESTHESIOLOGY RESIDENT. The patient was reaching for something in the bathroom when he lost his balance and fell into the tub. He hit the back of his head. He denies any LOC. He complains of right shoulder pain. He denies any headache. He is on eliquis for a history of DVT. Source of History: patient, spouse/significant other Onset: ANESTHESIOLOGY RESIDENT Position: other (global) Quality: other (fall) Timing: other (episodic) Associated Symptoms: No LOC, No headache Note: Pt reports right shoulder pain. Review of Systems See HPI for pertinent positives & negatives. A total of 10 systems reviewed and were otherwise negative. Past Medical & Surgical Medical Problems: (1) Asthma (2) Bronchitis (3) Cholecystectomy (4) DVT (deep venous thrombosis) (5) Elevated troponin (6) GI bleed (7) Hypercalcemia (8) Kidney stone Family History Cancer Diabetes mellitus Heart disease Hypertension Social History Smoking Status: Former Smoker Alcohol Use: none Drug Use: none Marital Status: Housing Status: lives with family Occupation Status: retired Current/Historical Medications Scheduled Amitriptyline Hcl (Amitriptyline Hcl), 150 MG PO HS Apixaban (Eliquis), 5 MG PO BID Cyanocobalamin (Vitamin B-12), 100 MCG PO QAM Folic Acid (Folvite), 1 MG PO QAM Furosemide (Lasix), 40 MG PO QAM Ketoconazole (Topical) (Ketoconazole), 1 APPLN TOP QPM Metoprolol Succinate (Toprol Xl), 25 MG PO QAM Multivitamin (Multivitamin), 1 TAB PO QAM Pantoprazole (Protonix), 40 MG PO BID Tamsulosin Hcl (Flomax), 0.4 MG PO QAM Allergies Coded Allergies: No Known Allergies (Verified , 09/26/17) Physical Exam Vital Signs Date Time Temp Pulse Resp B/P (MAP) Pulse Ox O2 Delivery O2 Flow Rate FiO2 09/26/17 20:53 72 16 126/66 94 Room Air 2/14/18 18:26 36.7 79 16 124/75 93 Room Air Physical Exam CONSTITUTIONAL/VITAL SIGNS: Reviewed / noted above. GENERAL: Non-toxic in appearance. INTEGUMENTARY: Warm, dry, and [place]. HEAD: Normocephalic. EYES: without scleral icterus or trauma. ENT/OROPHARYNX: clear and moist. LYMPHADENOPATHY/NECK: Is supple without lymphadenopathy or meningismus. RESPIRATORY: Lungs clear and equal. CARDIOVASCULAR: Regular rate and rhythm. GI/ABDOMEN: Soft and nontender. No organomegaly or pulsatile mass. No rebound or guarding. Normal bowel sounds. EXTREMITIES: Warm and well perfused. BACK: No CVA tenderness. NEUROLOGICAL: Intact without focal deficits. PSYCHIATRIC: normal affect. MUSCULOSKELETAL: Normally developed with good muscle tone. Mild discomfort in the right shoulder with movement. No obvious deformity. Medical Decision & Procedures ER Provider Diagnostic Interpretation: X ray results and stated below per my interpretation and radiology interpretation. Radiology results as stated below per my review and radiologist interpretation: R SHOULDER MIN 2 VIEWS ROUTINE CLINICAL HISTORY: rt shoulder pain after fall trauma. Pain. COMPARISON: None. DISCUSSION: The bones and joint spaces appear intact. There is no evidence of fracture, dislocation or bony disease. Moderate degenerative change. Possible right pleural effusion which has been known on prior CT exams. IMPRESSION: No acute process the right shoulder. Degenerative change. The above report was generated using voice recognition software. It may contain grammatical, syntax or spelling errors. Electronically signed by: Ignacio Kaplan M.D. 09/26/2017 7:50 PM Dictated Date/Time: 09/26/2017 7:48 PM HEAD WITHOUT CONTRAST (CT) CT DOSE: 614.27 mGy.cm HISTORY: Trauma fall on anticoagulation TECHNIQUE: Multiaxial CT images of the head were performed without the use of intravenous contrast. A dose lowering technique was utilized adhering to the principles of ALARA. Comparison: 11/09/2016 Findings: The paranasal sinuses and mastoid air cells are clear. The calvarium and skull base are intact. The ventricles and sulci are within normal limits. There is no mass, hematoma, midline shift, or acute infarct. Age-related atrophy and chronic small vessel change Impression: No acute intracranial abnormality. Age-related atrophy and chronic small vessel change The above report was generated using voice recognition software. It may contain grammatical, syntax or spelling errors. Electronically signed by: Ignacio Kaplan M.D. 09/26/2017 8:00 PM Dictated Date/Time: 09/26/2017 7:59 PM ED Course 1903: Previous medical records were reviewed. The patient was evaluated in room C2B. A complete history and physical examination was performed. 2114: On reevaluation, the patient is resting comfortably. I discussed the results and findings with the patient. He verbalized agreement of the treatment plan. He was discharged home. Medical Decision Differential includes close head injury, intracranial bleed, facial trauma, cervical spine trauma, chest and thoracic trauma, abdominal and intra-abdominal trauma, spine neurologic trauma, extremity trauma. This is a 77-year-old male who presents to the ED with a chief complaint of fall. The patient states that he lost his balance in his bathroom and landed in the tub. He complained of right shoulder pain and was worried about striking his head because he is on an oral anticoagulant. The patient's exam revealed some mild tenderness to the right shoulder. There is no obvious deformity. X-ray of the right shoulder did not show acute fracture or dislocation. CT scan of the brain was negative for acute intracranial process. The patient was told the results. He was felt to be stable for discharge. Head Trauma GCS Score: 15 Medication Reconcilliation Current Medication List: was personally reviewed by me Blood Pressure Screening Patient's blood pressure: Normal blood pressure Blood pressure disposition: Did not require urgent referral Impression Primary Impression: Fall Additional Impression: Contusion Scribe Attestation The scribe's documentation has been prepared under my direction and personally reviewed by me in its entirety. I confirm that the note above accurately reflects all work, treatment, procedures, and medical decision making performed by me. Departure Information Dispostion Home / Self-Care Referrals Ryan Esparza M.D. (PCP) Patient Instructions My [facility] Additional Instructions Follow-up with your doctor for further care and evaluation in 1-2 days. Return to the emergency department for worsening or new symptoms or any concerns. You have been examined and treated today on an emergency basis only. This is not a substitute for, or an effort to provide, complete comprehensive medical care. It is impossible to recognize and treat all injuries or illnesses in a single emergency department visit. It is therefore important that you follow up closely with your doctor. Call as soon as possible for an appointment. Problem Qualifiers
== END 2017-09-26 21:22 | disposition home or self-care (01) ==
LOC: C.EDB 18:11 → C.EDC 21:22
DX: T14.8XXA Other injury of unspecified body region, initial encounter (principal); W01.198A Fall on same level from slipping, tripping and stumbling with subsequent striking against other object, initial encounter; Z79.02 Long term (current) use of antithrombotics/antiplatelets; Z86.718 Personal history of other venous thrombosis and embolism; J45.909 Unspecified asthma, uncomplicated; Z90.49 Acquired absence of other specified parts of digestive tract; Z87.442 Personal history of urinary calculi; Z80.9 Family history of malignant neoplasm, unspecified; Z83.3 Family history of diabetes mellitus; Z82.49 Family history of ischemic heart disease and other diseases of the circulatory system; Z87.891 Personal history of nicotine dependence; Z79.899 Other long term (current) drug therapy

== ENCOUNTER → 2017-09-28 | Outpatient (CLI) | payer OTHER ==
[~2017-09-28] MED LIST changes: -CHOL2000 PO; -PROCRIT IM
[2017-09-28 13:16] LABS: BASO % 0.4 %; BASO ABS # 0.02 K/uL (0-0.2); EOS % 1.4 %; EOS ABS # 0.07 K/uL (0-0.5); HEMATOCRIT 42.9 % (42-52); HEMOGLOBIN 13.2 g/dL (14.0-18.0); IG# 0.01 K/uL (0.00-0.02); LYMPH % 20.5 %; MEAN CELL VOLUME 98.2 fL (80-100); MEAN CORPUSCULAR HEMOGLOBIN 30.2 pg (25-34); MEAN CORPUSCULAR HGB CONC 30.8 g/dl (32-36); MONO % 4.5 %; MONO ABS # 0.22 K/uL (0.11-0.59); NEUT ABS # 3.56 K/uL (1.4-6.5); PLATELET COUNT 185 K/uL (130-400); RED CELL DISTRIBUTION WIDTH CV 14.9 % (11.5-14.5); RED CELL DISTRIBUTION WIDTH SD 53.6 fL (36.4-46.3); WHITE BLOOD COUNT 4.88 K/uL (4.8-10.8)
[2017-09-28 13:25] LABS: HEMOGLOBIN A1C 5.8 % (4.5-5.6)
[2017-09-28 13:36] LABS: BLOOD UREA NITROGEN 36 mg/dl (7-18); CALCIUM 10.6 mg/dl (8.5-10.1); CARBON DIOXIDE 32 mmol/L (21-32); CREATININE 1.74 mg/dl (0.60-1.40); GLUCOSE 134 mg/dl (70-99); POTASSIUM 4.4 mmol/L (3.5-5.1); SODIUM 140 mmol/L (136-145)
== END ==
LOC: C.LAB1850 12:21
PROVIDERS: ATTEND Physician Assistant Medical
DX: M41.9 Scoliosis, unspecified (principal); E21.3 Hyperparathyroidism, unspecified; N18.3 Chronic kidney disease, stage 3 (moderate); R73.9 Hyperglycemia, unspecified; C16.9 Malignant neoplasm of stomach, unspecified; W19.XXXA Unspecified fall, initial encounter

== ENCOUNTER 2017-11-02 15:22 | Inpatient (IN) | payer OTHER ==
[~2017-11-02] VITALS: Ht 167.6 cm; Wt 65.6 kg
--- NOTE | 2017-11-02 16:10 | EMERGENCY ROOM VISIT NOTE ---
History Report prepared by Bethany: Delicia Pelletier Under the Supervision of: Dr. Judah Ludwig M.D. First contact with patient: 15:55 Chief Complaint: SWELLING TO EXTREMITY Stated Complaint: BOTH LEGS SWOLLEN AND RED ON TOP History of Present Illness The patient is a 77 year old male who presents to the Emergency Room with complaints of worsening redness and swelling to his legs and feet beginning about three months ago. The patient called his PCP this afternoon who told him to come to the ED. He denies any fevers, chills, cough, congestion, chest pain, or shortness of breath. He reports a history of swelling to his legs; however, he states his legs have not been as swollen as they are today. The patient is on eliquis for a history of DVTs. He denies missing any doses of his blood thinners. The patient was cut back on his water pill from daily to 2-3 times a week about 3 months ago. Per , the patient was cut back for about a week before starting retaking it on a daily basis. Source of History: patient Onset: three months ago Position: leg (bilateral) Quality: other (swelling) Timing: worsening Associated Symptoms: No fevers, No chills, No cough, No chest pain, No SOB Review of Systems See HPI for pertinent positives and negatives. A total of ten systems were reviewed and were otherwise negative. Past Medical & Surgical Medical Problems: (1) Asthma (2) Bronchitis (3) Cholecystectomy (4) DVT (deep venous thrombosis) (5) Elevated troponin (6) GI bleed (7) Hypercalcemia (8) Kidney stone Family History Cancer Diabetes mellitus Heart disease Hypertension Social History Smoking Status: Former Smoker Alcohol Use: none Drug Use: none Marital Status: Housing Status: lives with family Occupation Status: retired Current/Historical Medications Scheduled Amitriptyline Hcl (Amitriptyline Hcl), 150 MG PO HS Apixaban (Eliquis), 5 MG PO BID Cyanocobalamin (Vitamin B-12), 100 MCG PO QAM Folic Acid (Folvite), 1 MG PO QAM Furosemide (Lasix), 40 MG PO QAM Ketoconazole (Topical) (Ketoconazole), 1 APPLN TOP QPM Metoprolol Succinate (Toprol Xl), 25 MG PO QAM Multivitamin (Multivitamin), 1 TAB PO QAM Pantoprazole (Protonix), 40 MG PO BID Tamsulosin Hcl (Flomax), 0.4 MG PO QAM Allergies Coded Allergies: No Known Allergies (Verified , 09/26/17) Physical Exam Vital Signs Date Time Temp Pulse Resp B/P (MAP) Pulse Ox O2 Delivery O2 Flow Rate FiO2 11/02/17 20:01 79 24 162/97 92 Room Air 11/02/17 19:01 81 24 165/95 93 Room Air 11/02/17 18:24 83 20 160/92 92 Room Air 11/02/17 17:25 77 25 151/92 93 Room Air 11/02/17 16:31 76 11/02/17 16:20 95 Room Air 11/02/17 15:59 95 23 143/82 95 Room Air 11/02/17 15:24 74 18 137/79 95 Room Air Physical Exam GENERAL: Awake, alert, fatigued-appearing, in no distress HENT: Normocephalic, atraumatic. Oropharynx unremarkable. EYES: Normal conjunctiva. Sclera non-icteric. NECK: Supple. No nuchal rigidity. FROM. No JVD. RESPIRATORY: Diminished at the bases but otherwise clear to auscultation. CARDIAC: Regular rate, normal rhythm. Extremities warm and well perfused. Pulses equal. ABDOMEN: Soft, non-distended. No tenderness to palpation. No rebound or guarding. No masses. RECTAL: Deferred. MUSCULOSKELETAL: Chest examination reveals no tenderness. The back is symmetrical on inspection without obvious abnormality. There is no CVA tenderness to palpation. No joint edema. LOWER EXTREMITIES: Calves are equal size bilaterally and non-tender. 2+ bilateral lower extremity edema, no significant erythema or warmth. No discoloration. NEURO: Normal sensorium. No sensory or motor deficits noted. SKIN: No rash or jaundice noted. Medical Decision & Procedures ER Provider Diagnostic Interpretation: Radiology results as stated below per my review and radiologist interpretation: CHEST ONE VIEW PORTABLE FINDINGS: Moderate cardiomegaly. Trace amount pleural fluid both lung bases. Prominent pulmonary vasculature. IMPRESSION: Congestive heart failure. The above report was generated using voice recognition software. It may contain grammatical, syntax or spelling errors. Electronically signed by: Ignacio Kaplan M.D. Laboratory Results 11/02/17 16:35 Red Blood Count 4.60, Mean Corpuscular Volume 96.7, Mean Corpuscular Hemoglobin 30.2, Mean Corpuscular Hemoglobin Concent 31.2, Mean Platelet Volume 11.5, Neutrophils (%) (Auto) 73.1, Lymphocytes (%) (Auto) 19.1, Monocytes (%) (Auto) 6.0, Eosinophils (%) (Auto) 1.4, Basophils (%) (Auto) 0.2, Neutrophils # (Auto) 3.56, Lymphocytes # (Auto) 0.93, Monocytes # (Auto) 0.29, Eosinophils # (Auto) 0.07, Basophils # (Auto) 0.01 11/02/17 16:35 Test 11/02/17 16:35 11/02/17 20:08 White Blood Count 4.87 K/uL (4.8-10.8) Red Blood Count 4.60 M/uL (4.7-6.1) Hemoglobin 13.9 g/dL (14.0-18.0) Hematocrit 44.5 % (42-52) Mean Corpuscular Volume 96.7 fL (80-100) Mean Corpuscular Hemoglobin 30.2 pg (25-34) Mean Corpuscular Hemoglobin Concent 31.2 g/dl (32-36) Platelet Count 197 K/uL (130-400) Mean Platelet Volume 11.5 fL (7.4-10.4) Neutrophils (%) (Auto) 73.1 % Lymphocytes (%) (Auto) 19.1 % Monocytes (%) (Auto) 6.0 % Eosinophils (%) (Auto) 1.4 % Basophils (%) (Auto) 0.2 % Neutrophils # (Auto) 3.56 K/uL (1.4-6.5) Lymphocytes # (Auto) 0.93 K/uL (1.2-3.4) Monocytes # (Auto) 0.29 K/uL (0.11-0.59) Eosinophils # (Auto) 0.07 K/uL (0-0.5) Basophils # (Auto) 0.01 K/uL (0-0.2) RDW Standard Deviation 55.3 fL (36.4-46.3) RDW Coefficient of Variation 15.8 % (11.5-14.5) Immature Granulocyte % (Auto) 0.2 % Immature Granulocyte # (Auto) 0.01 K/uL (0.00-0.02) Erythrocyte Sedimentation Rate 21 mm/hr (0-14) Anion Gap 3.0 mmol/L (3-11) Est Creatinine Clear Calc Drug Dose 36.7 ml/min Estimated GFR () 51.8 Estimated GFR (Non- 44.7 BUN/Creatinine Ratio 19.7 (10-20) Calcium Level 11.0 mg/dl (8.5-10.1) Total Bilirubin 0.7 mg/dl (0.2-1) Direct Bilirubin 0.3 mg/dl (0-0.2) Aspartate Amino Transf (AST/SGOT) 20 U/L (15-37) Alanine Aminotransferase (ALT/SGPT) 23 U/L (12-78) Alkaline Phosphatase 165 U/L (45-117) Troponin I 0.057 ng/ml (0-0.045) Pro-B-Type Natriuretic Peptide 50421 pg/ml (0-1800) Total Protein 6.7 gm/dl (6.4-8.2) Albumin 3.0 gm/dl (3.4-5.0) Lipase 87 U/L (73-393) Laboratory results reviewed by me Medications Administered Medications (Trade) Dose Ordered Sig/Delia Route Start Time Stop Time Status Last Admin Dose Admin Furosemide (Lasix Inj) 40 mg NOW STAT IV 11/02/17 17:41 11/02/17 17:42 DC 11/02/17 18:15 40 MG Aspirin (Aspirin Chew) 162 mg NOW STAT PO 11/02/17 17:41 11/02/17 17:42 DC 11/02/17 18:16 162 MG ECG Per My Interpretation Indication: other (swelling) Rate (beats per minute): 77 Rhythm: normal sinus Findings: no acute ischemic change, other (LVH, normal axis) ED Course 1558: The patient was evaluated in room C5. A complete history and physical exam was performed. Medical Decision I reviewed the patient's past medical history, medications, and the nursing notes as described above. Differential diagnoses: lymphedema, venous insufficiency, DVT, CHF, malignancy. 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 On arrival the patient is no acute distress, afebrile stable vital signs. On exam the patient has 2+ bilateral lower extremity edema. There is no significant erythema or warmth. EKG is normal sinus with LVH and nonspecific lateral repolarization abnormality, QRS 112. Chest x-ray consistent with failure. BNP is 12,000. Troponin is marginally elevated at 0.05 in the setting of the patient CKD. Creatinine is at the patient's baseline and slightly improved. The patient does not exhibit significant respiratory symptoms and has normal oxygen saturation although he does appear to exhibit some slight dyspnea. Bedside echo performed and demonstrates enlarged LV with moderately reduced EF, which appears worse from patient's 2016 echo which demonstrated an EF of 50-55% . Given this new finding of heart failure will admit the patient for further management. Patient given ASA and Lasix. I discussed the case with [place]. Bravo , [facility], who will admit the patient for further management. Medication Reconcilliation Current Medication List: was personally reviewed by me Consults Time Called: 06:45 Consulting Physician: Dr. Bravo Returned Call: 07:15 Will evaluate for admission. Impression Primary Impression: New onset of congestive heart failure Scribe Attestation The scribe's documentation has been prepared under my direction and personally reviewed by me in its entirety. I confirm that the note above accurately reflects all work, treatment, procedures, and medical decision making performed by me. Departure Information Referrals Ryan Esparza M.D. (PCP) Patient Instructions My [facility]
[2017-11-02 16:52] LABS: BASO % 0.2 %; BASO ABS # 0.01 K/uL (0-0.2); EOS % 1.4 %; EOS ABS # 0.07 K/uL (0-0.5); HEMATOCRIT 44.5 % (42-52); HEMOGLOBIN 13.9 g/dL (14.0-18.0); IG# 0.01 K/uL (0.00-0.02); LYMPH % 19.1 %; LYMPH ABS # 0.93 K/uL (1.2-3.4); MEAN CELL VOLUME 96.7 fL (80-100); MEAN CORPUSCULAR HEMOGLOBIN 30.2 pg (25-34); MEAN CORPUSCULAR HGB CONC 31.2 g/dl (32-36); MEAN PLATELET VOLUME 11.5 fL (7.4-10.4); MONO ABS # 0.29 K/uL (0.11-0.59); NEUT % 73.1 %; NEUT ABS # 3.56 K/uL (1.4-6.5); PLATELET COUNT 197 K/uL (130-400); RED CELL DISTRIBUTION WIDTH CV 15.8 % (11.5-14.5); RED CELL DISTRIBUTION WIDTH SD 55.3 fL (36.4-46.3); WHITE BLOOD COUNT 4.87 K/uL (4.8-10.8)
--- NOTE | 2017-11-02 16:53 | DIAGNOSTIC IMAGING REPORT ---
CHEST ONE VIEW PORTABLE CLINICAL HISTORY: CHEST PAIN dyspnea COMPARISON STUDY: 07/02/2016 FINDINGS: Moderate cardiomegaly. Trace amount pleural fluid both lung bases. Prominent pulmonary vasculature. IMPRESSION: Congestive heart failure. The above report was generated using voice recognition software. It may contain grammatical, syntax or spelling errors. Electronically signed by: Ignacio Kaplan M.D. 11/02/2017 4:51 PM Dictated Date/Time: 11/02/2017 4:51 PM
[2017-11-02 17:09] LABS: CREATININE 1.47 mg/dl (0.60-1.40)
[2017-11-02 17:17] LABS: TOTAL PROTEIN 6.7 gm/dl (6.4-8.2)
[2017-11-02] MEDS ORDERED: ASPIRIN 81 MG CHEW PO STA (17:41)
[2017-11-02] MEDS ORDERED: FUROSEMIDE 40 MG/4 ML VIAL IV STA (17:41)
[2017-11-02] MEDS ORDERED: ACETAMINOPHEN 325 MG TAB PO PRN (20:15)
[2017-11-02] MEDS ORDERED: ALUMINUM/MAGNESIUM/SIMETH (MAALOX MAX) 30 ML UDC PO PRN (20:15)
[2017-11-02] MEDS ORDERED: MAGNESIUM HYDROXIDE SUSP 30 ML UDC PO PRN (20:15)
[2017-11-02] MEDS ORDERED: ZOLPIDEM TARTRATE 5 MG TAB PO PRN ×2 (20:15)
[2017-11-02] MEDS ORDERED: ONDANSETRON INJ 2 MG/ML 2 ML VIAL IV PRN (20:15)
[2017-11-02] MEDS ORDERED: POLYETHYLENE (MIRALAX) 17 GM PACK PO PRN (20:45)
--- NOTE | 2017-11-02 20:45 | History and Physical ---
History & Physical Date & Time of Service: Nov 02, 2017 at 20:21 Chief Complaint: Both Legs Swollen And Red On Top Primary Care Physician: Ryan Esparza M.D. History of Present Illness Source: patient, family 77-year-old man with past medical history of gastric ulcer in the 1960s a status post Billroth II unfortunately recently diagnosed with gastric cancer status post resection in 2016. Patient last year had a fall and l Traumatic Intertrochanteric Hip Fx S/P L Hip Repair. Unfortunately his hospital stay course was complicated by aspiration pneumonia, bilateral DVT. He also has hypertension and generalized deconditioning. For the past 3-4 weeks patient has been having increase in his lower extremity swelling. Right more than left. He takes Eliquis for his DVT and as per patient compliant with his medication. Patient also takes Lasix 20 mg p.o. daily. Presented to the ED for lower extremity swelling. Chest x-ray showed bilateral congestion with some right lower lobe density. He denies any productive cough. He says he coughs every now and then intermittently. Denies any fever or chills. Rest of the review of systems negative ED physician did an ultrasound/echo, appears to have decreased ejection fraction Past Medical/Surgical History Medical Problems: (1) Anemia (2) Asthma (3) Bronchitis (4) Chest pain (5) Chest pain, precordial (6) CHF (congestive heart failure) (7) Cholecystectomy (8) Closed head injury (9) Concussion (10) Contusion (11) DVT (deep venous thrombosis) (12) DVT (deep venous thrombosis) (13) DVT (deep venous thrombosis) (14) Elevated troponin (15) Fall (16) Fall (17) Fall at home (18) Fall in home (19) Forehead contusion (20) Forehead contusion (21) GI bleed (22) Groin pain (23) Hypercalcemia (24) Intertrochanteric fracture of left hip (25) Joint effusion of knee (26) Kidney stone (27) Knee effusion, left (28) Knee pain (29) Neck muscle strain (30) Neck strain Family History Cancer Diabetes mellitus Heart disease Hypertension Social History Smoking Status: Former Smoker Drug Use: none Marital Status: Housing status: prison Occupational Status: retired Immunizations History of Influenza Vaccine: No History of Tetanus Vaccine?: Unknown History of Pneumococcal: No History of Hepatitis B Vaccine: No Allergies Coded Allergies: No Known Allergies (Verified , 09/26/17) Home Medications Scheduled Amitriptyline Hcl (Amitriptyline Hcl), 150 MG PO HS Apixaban (Eliquis), 5 MG PO BID Cyanocobalamin (Vitamin B-12), 100 MCG PO QAM Folic Acid (Folvite), 1 MG PO QAM Furosemide (Lasix), 40 MG PO QAM Ketoconazole (Topical) (Ketoconazole), 1 APPLN TOP QPM Metoprolol Succinate (Toprol Xl), 25 MG PO QAM Multivitamin (Multivitamin), 1 TAB PO QAM Pantoprazole (Protonix), 40 MG PO BID Tamsulosin Hcl (Flomax), 0.4 MG PO QAM Review of Systems Review of system Constitutional: Generalized weakness and fatigue Eyes: no blurring of vision / no eye pain / no discharge / no redness ENT: no hearing loss / no epistaxis /no swallowing problems Respiratory: Intermittent nonproductive cough/ no wheezing / no SOB / no hemoptysis Cardiovascular: no Chest pain /bilateral progressive lower extremity edema/ no palpitation Abdomen: no pain / no nausea / no vomiting / no constipation Musculoskeletal: no joint pain / no muscle pain / no joint swelling Genitourinary: no dysuria / no incontinence / no urinary retention Neurologic: no focal weakness / no numbness/tingling / no ataxia Psychiatric: no depression symptoms / no anxiety / no insomnia Endocrine: no excessive thirst / no excessive urination Hematologic: no abnormal bleeding / no bruising / no LN swelling Skin: No rash / no pallor Physical Exam Vital Signs Date Time Temp Pulse Resp B/P (MAP) Pulse Ox O2 Delivery O2 Flow Rate FiO2 11/02/17 19:01 81 24 165/95 93 Room Air 11/02/17 18:24 83 20 160/92 92 Room Air 11/02/17 17:25 77 25 151/92 93 Room Air 11/02/17 16:31 76 11/02/17 16:20 95 Room Air 11/02/17 15:59 95 23 143/82 95 Room Air 11/02/17 15:24 74 18 137/79 95 Room Air Has some left facial droop, family states that this is his baseline physical examination General patient appears to be comfortable, not in acute distress, but appears weak in general HEENT: Atraumatic , normocephalic /no jaundice /no pallor /anicteric /no dry mucous membrane /normal external ear inspection Neck: Supple /no swelling /central trach Heart: S1/S2 normal/regular rate and rhythm/ soft systolic murmur left parasternal /positive gallop Lungs: Clear to auscultation bilaterally/normal chest with expansion/no rhonchi/ no rales/no wheezing/no use of accessory muscles of respiration Abdomen: Soft/nontender/no guarding/no rebound/no organomegaly/no pulsatile mass Musculoskeletal: No swelling/bilateral lower extremity +3 edema, pitting/no tenderness/normal range of motion Neuro exam: Awake alert oriented 3/cranial nerves II through XII appear to be intact/sensation intact/moves all extremities/no abnormal movements, has some face left facial droop family said this is his baseline Psychiatric evaluation: No depressed mood/normal affect Skin: No rash on exposed skin area/no erythema Extremity: Normal pulse/no pitting edema/no clubbing or cyanosis Endocrine/lymphatic: No obvious lymphadenopathy /no lymphedema Diagnostics Laboratory Results Results Past 24 Hours Test 11/02/17 16:35 11/02/17 20:08 Range/Units White Blood Count 4.87 4.8-10.8 K/uL Red Blood Count 4.60 4.7-6.1 M/uL Hemoglobin 13.9 14.0-18.0 g/dL Hematocrit 44.5 42-52 % Mean Corpuscular Volume 96.7 80-100 fL Mean Corpuscular Hemoglobin 30.2 25-34 pg Mean Corpuscular Hemoglobin Concent 31.2 32-36 g/dl Platelet Count 197 130-400 K/uL Mean Platelet Volume 11.5 7.4-10.4 fL Neutrophils (%) (Auto) 73.1 % Lymphocytes (%) (Auto) 19.1 % Monocytes (%) (Auto) 6.0 % Eosinophils (%) (Auto) 1.4 % Basophils (%) (Auto) 0.2 % Neutrophils # (Auto) 3.56 1.4-6.5 K/uL Lymphocytes # (Auto) 0.93 1.2-3.4 K/uL Monocytes # (Auto) 0.29 0.11-0.59 K/uL Eosinophils # (Auto) 0.07 0-0.5 K/uL Basophils # (Auto) 0.01 0-0.2 K/uL RDW Standard Deviation 55.3 36.4-46.3 fL RDW Coefficient of Variation 15.8 11.5-14.5 % Immature Granulocyte % (Auto) 0.2 % Immature Granulocyte # (Auto) 0.01 0.00-0.02 K/uL Sodium Level 141 136-145 mmol/L Potassium Level 4.0 3.5-5.1 mmol/L Chloride Level 106 98-107 mmol/L Carbon Dioxide Level 32 21-32 mmol/L Anion Gap 3.0 3-11 mmol/L Blood Urea Nitrogen 29 7-18 mg/dl Creatinine 1.47 0.60-1.40 mg/dl Est Creatinine Clear Calc Drug Dose 36.7 ml/min Estimated GFR () 51.8 Estimated GFR (Non- 44.7 BUN/Creatinine Ratio 19.7 10-20 Random Glucose 98 70-99 mg/dl Calcium Level 11.0 8.5-10.1 mg/dl Total Bilirubin 0.7 0.2-1 mg/dl Direct Bilirubin 0.3 0-0.2 mg/dl Aspartate Amino Transf (AST/SGOT) 20 15-37 U/L Alanine Aminotransferase (ALT/SGPT) 23 12-78 U/L Alkaline Phosphatase 165 45-117 U/L Troponin I 0.057 0-0.045 ng/ml Pro-B-Type Natriuretic Peptide 22100 0-1800 pg/ml Total Protein 6.7 6.4-8.2 gm/dl Albumin 3.0 3.4-5.0 gm/dl Lipase 87 73-393 U/L Impression Assessment and Plan 77-year-old man with past medical history of gastric ulcer in the 1960s a status post Billroth II unfortunately recently diagnosed with gastric cancer status post resection in 2016. Patient last year had a fall and l Traumatic Intertrochanteric Hip Fx S/P L Hip Repair. Unfortunately his hospital stay course was complicated by aspiration pneumonia, bilateral DVT. He also has hypertension and generalized deconditioning. Presented with lower extremity swellings, chest x-ray showed right lower lobe density, ultrasound done in ED by ED physician showed ejection fraction of 20-30 % assessment: Bilateral lower extremity edema right more than left New onset CHF unspecified Chronic cough Right lower lobe density with no fever or chills Recent history of stomach cancer status post resection Remote history of gastric ulcer status post Billroth II Hypertension Osteoporosis status post mechanical fall and hip fracture Generalized weakness and deconditioning Positive troponin likely demand ischemia, will trend troponin plan: admit to telemetry obtain serial cardiac enz As his lower extremity swelling right more than left, with his history of bilateral DVT and IVC, he is supposed to be on Eliquis but will do ultrasound lower extremity rule out DVT Chest x-ray is suspicious for density in right lower lobe will order a CAT scan without contrast to evaluate further, does not fit criteria for pneumonia unless it is a chronic type infection, my major concern is metastasis from his previous gastric cancer. 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 Lasix daily at home, will start him on 20 mg IV twice daily control blood pressure, afterload and preload DVT prophylaxis Patient would like us to try to save him if his heart stop first, that made him full code, he does not want to live on machine, CODE STATUS was discussed in the presence of his and his son who helps him take the decision Resuscitation Status VTE Prophylaxis Will order VTE Prophylaxis: Yes
[2017-11-02] MEDS ORDERED: KETOCONAZOLE TOP SCH (21:00)
[2017-11-02 21:20] VITALS: BP 159/79; PULSE 84; TEMP 37; O2SAT 94; Ht 167.6 cm; Wt 65.6 kg
[2017-11-02] MEDS: APIXABAN 2.5 MG TAB PO SCH (22:10)
[2017-11-02] MEDS: AMITRIPTYLINE HCL 50 MG TAB PO SCH (22:11)
[2017-11-02] MEDS: PANTOprazole SOD 40 MG TAB PO SCH (22:11)
--- NOTE | 2017-11-02 23:21 | DIAGNOSTIC IMAGING REPORT ---
(CHEST) THORAX WITHOUT CLINICAL HISTORY: 77 years-old Male presenting with abnormal CXR RLL, SOB, Hx of stomach cancer. TECHNIQUE: Multidetector CT imaging of the chest was performed without the use of intravenous contrast. IV contrast: None. A dose lowering technique was used consistent with the principles of ALARA (as low as reasonably achievable). COMPARISON: 05/07/2017. CT DOSE (mGy.cm): The estimated cumulative dose is 207.55 mGy.cm. FINDINGS: [employer] topogram: Right lung density and right pleural effusion. Cardiomegaly. Number of surgical clips project over the upper abdomen. IVC filter. On soft tissue windows, multinodular thyroid with a dominant exophytic peripherally calcified 28 mm nodule arising from the lower pole of the right lobe. Mild body wall edema. No axillary, supraclavicular, or mediastinal lymphadenopathy. Evaluation of the maki limited without intravenous contrast. Atherosclerosis of the aorta. Multichamber enlargement of the heart. Coronary artery calcification. Trace pericardial effusion. Moderate to large right pleural effusion, increased from prior, which appears loculated. Small to moderate left pleural effusion. Multiple surgical clips or embolization coils noted. Chronic renal atrophy suggested. On lung windows, persistent lobular partially solid, partially subsolid 15 mm nodule at the medial aspect of the apical segment of the right upper lobe (series 4 image 64), which is unchanged in size and appearance when remeasured at a comparable level. Again this demonstrates partial cavitation at the inferior posterior aspect (series 4 image 69). Nodularity at the apices unchanged. Extensive dependent consolidation and volume loss related to the presence of the pleural effusions. No new nodule. On bone windows, degenerative changes of the spine. Osteopenia and exaggerated thoracic kyphosis. Thoracic scoliosis. IMPRESSION: 1. Increasing bilateral pleural effusions. The right pleural effusion may be loculated. Increased passive atelectasis in both lungs. 2. Stable size and appearance of the partially solid, partially subsolid nodule at the right upper lobe with continued follow-up recommended. Nikita Society criteria for nodule follow-up does not apply in the setting of cancer. 3. No new nodule. 4. Cardiomegaly. Electronically signed by: Mathieu Best M.D. 11/02/2017 11:19 PM Dictated Date/Time: 11/02/2017 11:12 PM
[2017-11-03] VITALS (7 sets, daily range): BP systolic 138–165; BP diastolic 79–92; PULSE 75–83; TEMP 36.4–37; O2SAT 91–95
--- NOTE | 2017-11-03 05:49 | DIAGNOSTIC IMAGING REPORT ---
VENOUS DOPPLER LWR EXT BILA HISTORY: Pain. Edema. swelling r/o dvt COMPARISON STUDY: None. FINDINGS: Findings consistent with chronic thrombophlebitis of the right peroneal vein. There is nonocclusive acute deep venous thrombosis left popliteal vein. Incomplete evaluation left calf with potential additional deep venous thrombosis within the posterior tibial vein. IMPRESSION: 1. Acute deep venous thrombosis left leg. 2. Chronic thrombophlebitis right peroneal vein. The above report was generated using voice recognition software. It may contain grammatical, syntax or spelling errors. Electronically signed by: Ignacio Kaplan M.D. 11/03/2017 5:48 AM Dictated Date/Time: 11/03/2017 5:44 AM
[2017-11-03 06:05] LABS: BASO % 0.2 %; BASO ABS # 0.01 K/uL (0-0.2); EOS % 1.6 %; EOS ABS # 0.09 K/uL (0-0.5); HEMATOCRIT 39.8 % (42-52); HEMOGLOBIN 12.4 g/dL (14.0-18.0); IG# 0.01 K/uL (0.00-0.02); LYMPH % 22.9 %; LYMPH ABS # 1.27 K/uL (1.2-3.4); MEAN CELL VOLUME 96.6 fL (80-100); MEAN CORPUSCULAR HEMOGLOBIN 30.1 pg (25-34); MEAN CORPUSCULAR HGB CONC 31.2 g/dl (32-36); MEAN PLATELET VOLUME 11.3 fL (7.4-10.4); MONO % 7.4 %; MONO ABS # 0.41 K/uL (0.11-0.59); NEUT % 67.7 %; NEUT ABS # 3.76 K/uL (1.4-6.5); PLATELET COUNT 170 K/uL (130-400); RED CELL DISTRIBUTION WIDTH CV 15.4 % (11.5-14.5); RED CELL DISTRIBUTION WIDTH SD 54.4 fL (36.4-46.3); WHITE BLOOD COUNT 5.55 K/uL (4.8-10.8)
[2017-11-03 06:39] LABS: ALBUMIN 2.6 gm/dl (3.4-5.0); CALCIUM 10.8 mg/dl (8.5-10.1); CREATININE 1.33 mg/dl (0.60-1.40); POTASSIUM 4.1 mmol/L (3.5-5.1)
[2017-11-03 06:43] LABS: TOTAL PROTEIN 5.9 gm/dl (6.4-8.2)
[2017-11-03] MEDS: TAMSULOSIN HCL 0.4 MG CAP PO SCH (08:24)
[2017-11-03] MEDS: APIXABAN 2.5 MG TAB PO SCH (08:24)
[2017-11-03] MEDS: FUROSEMIDE INJ 20 MG in SYRINGE 0 ML IV SCH ×2 (08:24→16:58)
[2017-11-03] MEDS: METOPROLOL SUCC 25MG EXT REL TAB PO SCH (08:25)
[2017-11-03] MEDS: CYANOCOBALAMIN 100 MCG TAB (VIT B-12) PO SCH (08:25)
[2017-11-03] MEDS: PANTOprazole SOD 40 MG TAB PO SCH ×2 (08:25→20:41)
--- NOTE | 2017-11-03 10:06 | ECHOCARDIOGRAM REPORT ---
*NOTICE TO RECEIVING DEMOCRAT AGENCY This information is strictly Confidential and protected under [place] law. [place] law prohibits you from making any further disclosure of this information unless further disclosure is expressly permitted by the written consent of the person to whom it pertains or is authorized by law. A general authorization for the release of medical or other information is not sufficient for this purpose. Hospital accepts no responsibility if the information is made available to any other person, INCLUDING THE PATIENT. Interpretation Summary * Name: WILFRID IBRAHIM Study Date: 11/03/2017 07:18 AM BP: 148/81 mmHg * Patient Location: .2T\S\S229\S\1 HR: 78 * : 1940 (M/d/yyy) Gender: Male Height: 66 in * Age: 77 yrs Ethnicity: CA Weight: 149 lb * Ordering Physician: Pina Beck * Referring Physician: Self, Referred * Performed By: Tanja Triana RDCS * * Reason For Study: CHF * BSA: 1.8 m2 * -- Conclusions -- * Left ventricular systolic function is moderate to severely reduced. * The left atrium is moderately dilated. * Trace aortic regurgitation. * There is moderate mitral regurgitation. * Right ventricular systolic pressure is elevated at 40-50mmHg. * Compared to study from 06/2016, there is no severe LV systolic dysfunction in the degree of mitral regurgitation is worse. Procedure Details * A complete two-dimensional transthoracic echocardiogram was performed (2D, M-mode, Doppler and color flow Doppler). Left Ventricle * The left ventricle is grossly normal size. * There is normal left ventricular wall thickness. * Left ventricular systolic function is moderate to severely reduced. * Ejection Fraction = 15-20%. * There are regional wall motion abnormalities as specified. * The septum is akinetic. There is severe hypokinesis involving the posterior wall and inferior apex with akinesis of the remaining segments. Right Ventricle * The right ventricle is normal in size and function. * The right ventricular systolic function is normal as assessed by tricuspid annular plane systolic excursion (TAPSE) (normal >1.5 cm). Atria * The left atrium is moderately dilated. * Right atrial size is normal. Mitral Valve * The mitral valve leaflets appear thickened, but open well. * There is moderate mitral regurgitation. Tricuspid Valve * The tricuspid valve is not well visualized, but is grossly normal. * There is mild tricuspid regurgitation. * Right ventricular systolic pressure is elevated at 40-50mmHg. Aortic Valve * Aortic valve sclerosis moderate, without significant aortic valvular stenosis. * No hemodynamically significant valvular aortic stenosis. * Trace aortic regurgitation. Great Vessels * The aortic root is normal size. Pericardium/Pleural * Trace pericardial effusion MMode 2D Measurements and Calculations IVSd 1.1 cm IVSs 1.3 cm LVIDd 4.7 cm LVIDs 4.4 cm LVPWd 1.8 cm LVPWs 1.9 cm IVS/LVPW 0.58 FS 7.1 % EDV(Teich) 104.6 ml ESV(Teich) 88.2 ml EF(Teich) 15.8 % EDV(cubed) 106.8 ml ESV(cubed) 85.8 ml EF(cubed) 19.7 % % IVS thick 22.4 % % LVPW thick 5.3 % LV mass(C)d 281.8 grams LV mass(C)dI 159.7 grams/m\S\2 LV mass(C)s 299.1 grams LV mass(C)sI 169.5 grams/m\S\2 SV(Teich) 16.5 ml SI(Teich) 9.3 ml/m\S\2 SV(cubed) 21.0 ml SI(cubed) 11.9 ml/m\S\2 Ao root diam 3.4 cm Ao root area 9.0 cm\S\2 LA dimension 4.6 cm LA/Ao 1.4 LVOT diam 2.1 cm LVOT area 3.3 cm\S\2 LVAd ap4 44.7 cm\S\2 LVLd ap4 9.3 cm EDV(MOD-sp4) 172.8 ml EDV(sp4-el) 181.8 ml LVAs ap4 35.8 cm\S\2 LVLs ap4 8.4 cm ESV(MOD-sp4) 126.7 ml ESV(sp4-el) 128.6 ml EF(MOD-sp4) 26.7 % EF(sp4-el) 29.3 % LVAd ap2 39.7 cm\S\2 LVLd ap2 9.4 cm EDV(MOD-sp2) 139.5 ml EDV(sp2-el) 142.2 ml LVAs ap2 33.6 cm\S\2 LVLs ap2 8.6 cm ESV(MOD-sp2) 108.2 ml ESV(sp2-el) 110.7 ml EF(MOD-sp2) 22.4 % EF(sp2-el) 22.2 % LVLd %diff 1.0 % EDV(MOD-bp) 157.7 ml LVLs %diff 2.2 % ESV(MOD-bp) 117.8 ml EF(MOD-bp) 25.3 % SV(MOD-sp4) 46.1 ml SI(MOD-sp4) 26.1 ml/m\S\2 SV(MOD-sp2) 31.3 ml SI(MOD-sp2) 17.7 ml/m\S\2 SV(MOD-bp) 39.9 ml SI(MOD-bp) 22.6 ml/m\S\2 SV(sp4-el) 53.2 ml SI(sp4-el) 30.1 ml/m\S\2 SV(sp2-el) 31.5 ml SI(sp2-el) 17.9 ml/m\S\2 Doppler Measurements and Calculations MV E max raul 108.9 cm/sec MV A max raul 46.9 cm/sec MV E/A 2.3 MV dec time 0.16 sec Ao V2 max 172.1 cm/sec Ao max PG 11.9 mmHg Ao max PG (full) 9.6 mmHg Ao V2 mean 106.0 cm/sec Ao mean PG 5.4 mmHg Ao mean PG (full) 4.2 mmHg Ao V2 VTI 25.0 cm SHERRY(I,A) 1.7 cm\S\2 SHERRY(I,D) 1.7 cm\S\2 SHERRY(V,A) 1.5 cm\S\2 SHERRY(V,D) 1.5 cm\S\2 AI max raul 353.7 cm/sec AI max PG 50.1 mmHg AI dec slope 228.0 cm/sec\S\2 AI P1/2t 454.4 msec LV V1 max PG 2.3 mmHg LV V1 mean PG 1.1 mmHg LV V1 max 75.3 cm/sec LV V1 mean 47.7 cm/sec LV V1 VTI 13.0 cm MR max raul 570.7 cm/sec MR max PG 130.3 mmHg SV(Ao) 224.3 ml SI(Ao) 127.1 ml/m\S\2 SV(LVOT) 43.5 ml SI(LVOT) 24.6 ml/m\S\2 TR max raul 305.7 cm/sec
--- NOTE | 2017-11-03 10:10 | Cardiology Consultation ---
Cardiology Consultation Date of Consultation: Nov 03, 2017. Requesting Physician: Gutierrez Reason for Consultation: CHF Pt evaluation today including: conversation w/ patient, physical exam, chart review, lab review, review of studies, review of inpatient medication list History of Present Illness The patient is a 77-year-old gentleman without a known history of cardiac disease who presented to the emergency room at [facility] with complaints of foot swelling. Patient states that the symptoms happen fairly suddenly but were not associated with any foot or leg pain. His emergency room evaluation suggested an element of pulmonary vascular congestion and he was also admitted for heart failure. He states that he has not had any breathing difficulty. He reports lying flat in bed. He has no symptoms of orthopnea or paroxysmal nocturnal dyspnea. He does not report any increasing abdominal girth. He is sedentary and ambulates with a cane, but has not had any worsening dyspnea with activity. He has not had to restrict his activities recently. He denies symptoms of chest pain. He has been eating well. He has not reported dizziness or lightheadedness although did relate 2 episodes recently where he fell at home. Both of these involved reaching for something and falling backwards. He does not believe that he lost consciousness with any of these episodes. Past Medical/Surgical History Gastric cancer status post resection Stage III renal disease Chronic obstructive pulmonary disease Hypercalcemia due to hyperparathyroidism Gastroesophageal reflux disease Pulmonary nodule Iron deficiency anemia History of DVT, multiple Nephrolithiasis Past surgical history Conor filter placement Cataract surgery Cholecystectomy Hemorrhoidectomy Gastrectomy Varicose vein ligation Family History Cancer Diabetes mellitus Heart disease Hypertension Noncontributory given his advanced age Social History Smoking Status: Never Smoker History of Alcohol Use: Yes (QUIT 1986) Currently lives independently with his Review of Systems Per HPI. Patient claims to be urinating normally. He has not been aware of any palpitations or rapid heartbeats. All Other Systems: Reviewed and Negative Allergies Coded Allergies: No Known Allergies (Verified , 09/26/17) Medications Current Inpatient Medications Medications (Trade) Dose Ordered Sig/Delia Route Start Time Stop Time Status Last Admin Dose Admin Cyanocobalamin (Vitamin B-12 Tab) 100 mcg QAM PO 11/03/17 09:00 12/03/17 08:59 11/03/17 08:25 100 MCG Folic Acid (Folvite Tab) 1 mg QAM PO 11/03/17 09:00 12/03/17 08:59 11/03/17 08:24 1 MG Metoprolol Succinate (Toprol Xl Tab) 25 mg QAM PO 11/03/17 09:00 12/03/17 08:59 11/03/17 08:25 25 MG Pantoprazole Sodium (Protonix Tab) 40 mg BID PO 11/02/17 21:00 12/02/17 20:59 11/03/17 08:25 40 MG Tamsulosin HCl (Flomax Cap) 0.4 mg QAM PO 11/03/17 09:00 12/03/17 08:59 11/03/17 08:24 0.4 MG Amitriptyline HCl (Elavil Tab) 150 mg HS PO 11/02/17 21:00 12/02/17 20:59 11/02/17 22:11 150 MG Acetaminophen (Tylenol Tab) 650 mg Q4H PRN PO 11/02/17 20:15 12/02/17 20:14 Al Hydrox/Mg Hydrox/Simethicone (Maalox Max Susp) 15 ml Q4H PRN PO 11/02/17 20:15 12/02/17 20:14 Magnesium Hydroxide (Milk Of Magnesia Susp) 30 ml Q12H PRN PO 11/02/17 20:15 12/02/17 20:14 Zolpidem Tartrate (Ambien Tab) 5 mg HSZ PRN PO 11/02/17 20:15 12/02/17 20:14 Zolpidem Tartrate (Ambien Tab) 5 mg HSZ PRN PO 11/02/17 20:15 12/02/17 20:14 Ondansetron HCl (Zofran Inj) 4 mg Q6H PRN IV 11/02/17 20:15 12/02/17 20:14 Polyethylene (Miralax Powder Packet) 17 gm DAILY PRN PO 11/02/17 20:45 12/02/17 20:44 Furosemide 20 mg/ Syringe 2 ml @ 4 mls/min BID17 IV 11/03/17 09:00 12/03/17 08:59 11/03/17 08:24 4 MLS/MIN Miscellaneous Information (Order Awaiting Action) 1 ea QS N/A 11/03/17 00:00 12/03/17 00:00 Heparin Sodium/ Dextrose 1 ea Q10M N/A 11/03/17 09:15 12/03/17 09:14 Physical Exam Vital Signs Past 12 Hours Date Time Temp Pulse Resp B/P (MAP) Pulse Ox O2 Delivery O2 Flow Rate FiO2 11/03/17 08:00 Room Air 11/03/17 07:48 36.4 76 18 148/81 (103) 91 Room Air 11/03/17 04:28 36.5 76 16 138/79 (98) 92 Room Air 11/03/17 04:00 Room Air 11/03/17 00:36 36.8 80 16 147/89 (108) 95 Room Air 11/03/17 00:00 Room Air The patient is alert and oriented. Mood and affect appeared normal. He answered all questions appropriately. HEENT: Pupils are equal and reactive to light and accommodation. Extraocular movements are intact. The sclerae are anicteric. Neuro: Cranial nerves intact Neck: Patient's neck is supple. He has palpable carotid pulses bilaterally without bruits on auscultation. There is no evidence of jugular venous distention. The thyroid is not enlarged. Lungs: Clear to auscultation bilaterally. He has good air movement without use of accessory muscles. No rales wheezes or rhonchi. Cardiac: Heart demonstrates a regular rate and rhythm. Normal S1 and S2. Holosystolic murmur heard best at the axilla. Pulses: The patient has palpable radial pulses bilaterally that are equal in intensity Extremities: There was no evidence of hypoperfusion. There is no cyanosis or clubbing. Mild peripheral edema of the lower extremities right worse than left Skin: I did not appreciate any rashes on examination today. Data Laboratory Results: Last 24 Hours Test 11/02/17 16:35 11/03/17 02:00 11/03/17 05:18 11/03/17 08:41 White Blood Count 4.87 K/uL 5.55 K/uL Red Blood Count 4.60 M/uL 4.12 M/uL Hemoglobin 13.9 g/dL 12.4 g/dL Hematocrit 44.5 % 39.8 % Mean Corpuscular Volume 96.7 fL 96.6 fL Mean Corpuscular Hemoglobin 30.2 pg 30.1 pg Mean Corpuscular Hemoglobin Concent 31.2 g/dl 31.2 g/dl Platelet Count 197 K/uL 170 K/uL Mean Platelet Volume 11.5 fL 11.3 fL Neutrophils (%) (Auto) 73.1 % 67.7 % Lymphocytes (%) (Auto) 19.1 % 22.9 % Monocytes (%) (Auto) 6.0 % 7.4 % Eosinophils (%) (Auto) 1.4 % 1.6 % Basophils (%) (Auto) 0.2 % 0.2 % Neutrophils # (Auto) 3.56 K/uL 3.76 K/uL Lymphocytes # (Auto) 0.93 K/uL 1.27 K/uL Monocytes # (Auto) 0.29 K/uL 0.41 K/uL Eosinophils # (Auto) 0.07 K/uL 0.09 K/uL Basophils # (Auto) 0.01 K/uL 0.01 K/uL RDW Standard Deviation 55.3 fL 54.4 fL RDW Coefficient of Variation 15.8 % 15.4 % Immature Granulocyte % (Auto) 0.2 % 0.2 % Immature Granulocyte # (Auto) 0.01 K/uL 0.01 K/uL Erythrocyte Sedimentation Rate 21 mm/hr Sodium Level 141 mmol/L 141 mmol/L Potassium Level 4.0 mmol/L 4.1 mmol/L Chloride Level 106 mmol/L 106 mmol/L Carbon Dioxide Level 32 mmol/L 29 mmol/L Anion Gap 3.0 mmol/L 6.0 mmol/L Blood Urea Nitrogen 29 mg/dl 28 mg/dl Creatinine 1.47 mg/dl 1.33 mg/dl Est Creatinine Clear Calc Drug Dose 36.7 ml/min 40.6 ml/min Estimated GFR () 51.8 58.5 Estimated GFR (Non- 44.7 50.5 BUN/Creatinine Ratio 19.7 21.1 Random Glucose 98 mg/dl 99 mg/dl Calcium Level 11.0 mg/dl 10.8 mg/dl Total Bilirubin 0.7 mg/dl 0.9 mg/dl Direct Bilirubin 0.3 mg/dl Aspartate Amino Transf (AST/SGOT) 20 U/L 15 U/L Alanine Aminotransferase (ALT/SGPT) 23 U/L 20 U/L Alkaline Phosphatase 165 U/L 142 U/L Troponin I 0.057 ng/ml 0.070 ng/ml 0.061 ng/ml Pro-B-Type Natriuretic Peptide 52775 pg/ml Total Protein 6.7 gm/dl 5.9 gm/dl Albumin 3.0 gm/dl 2.6 gm/dl Lipase 87 U/L Estimated Average Glucose 126 mg/dl Hemoglobin A1c 6.0 % Magnesium Level 2.0 mg/dl C-Reactive Protein 0.35 mg/dl Globulin 3.3 gm/dl Albumin/Globulin Ratio 0.8 Triglycerides Level 56 mg/dl Cholesterol Level 135 mg/dl HDL Cholesterol 76 mg/dl LDL Cholesterol, Calculated 48 mg/dl VLDL Cholesterol, Calculated 11 mg/dl Cholesterol/HDL Ratio 1.8 Test 11/03/17 09:40 Imaging: Chest CT suggested small bilateral pleural effusions possibly loculated. There was evidence of cardiomegaly and pulmonary vascular congestion. Also noted was a stable pulmonary nodule EKG: Sinus rhythm with LVH Telemetry reviewed: No significant arrhythmia Echocardiogram performed today revealed severely reduced LV systolic function with moderate mitral regurgitation. Assessment & Plan 1. Acute decompensated systolic heart failure: In the past the patient's LV systolic function was noted to be normal. There has been a notable change at some point in the recent past. Exact chronicity of his LV dysfunction is unclear. He did not relate symptoms consistent with worsening dyspnea, pulmonary vascular congestion or edema. With the exception of some swelling in his feet he has not noticed any new symptoms. He did not endorse symptoms of chest discomfort suggestive of recent infarct. The pattern of LV dysfunction on his echocardiogram is more global than focal. This would suggest a likely non ischemic etiology. At this point diuresis seems to be the most urgent intervention. He was given 1 dose of intravenous Lasix and is scheduled for b.i.d. dosing currently. We will monitor his diuresis and renal function on the current regimen and decide if a more aggressive regimen is required to affect an element of diuresis. 2. Cardiomyopathy: The etiology is unclear. He certainly has risk factors for ischemic heart disease. 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 Ideally he would undergo coronary angiography for evaluation. This has some risks with his renal dysfunction and need for anticoagulation in the setting of DVT. Intervention would also require him to be on dual anti-platelet therapy in addition to his anticoagulation which may place him at risk of bleeding events especially in light of prior bleeding. I did discuss the option of cardiac catheterization with the patient briefly. He would not commit at this time and wishes to consider the procedure after discussing it with his . If we were to perform angiography we would need to interrupt his oral Eliquis and bridge him with heparin. Alternatively, we could perform perfusion imaging in order to determine if he has high risk features and proceed with catheterization based on that result is indicated. Patient is currently on metoprolol which could be increased after some diuresis. Ideally he would also be on an Rl inhibitor or ARB. I would defer to the primary service and nephrologists was if this is reasonable given his renal dysfunction. A less attractive option would be institution of hydralazine and nitrates. 3. Valvular heart disease: Patient has moderate mitral regurgitation. This may be functional given his current cardiomyopathy. This can be followed over time. 4. Elevated troponin: The elevation is quite minimal. Given his degree of LV dysfunction and absence of chest discomfort this is more likely related to his heart failure and a recent infarct.
[2017-11-03 10:36] LABS: INR 1.1 (0.9-1.1); PTT PATIENT 30.1 SECONDS (21.0-31.0)
[2017-11-03] MEDS: HEPARIN 25,000 UNIT/500ML D5W 500 ML IV SCH (11:50)
[2017-11-03 18:46] LABS: PTT PATIENT 51.1 SECONDS (21.0-31.0)
[2017-11-03] MEDS: AMITRIPTYLINE HCL 50 MG TAB PO SCH (20:41)
--- NOTE | 2017-11-03 21:06 | Progress Note ---
Subjective Date of Service: Nov 03, 2017. Subjective Pt evaluation today including: conversation w/ patient, conversation w/ family ( at bedside), physical exam, chart review, lab review, review of studies ( CT chest, echo, dopplers), conversation w/ talent development consultant (thoracic surgery, cardiology) Pain: none voiced PO Intake: fair; pt reports early satiety "last few weeks" Voiding: no voiding problems tele stable overnight patient denies significant cough, but has been breathing rapidly and has noted mild increase in respiratory rate patient states his gastric cancer was treated with surgery only at [facility] about 2 years ago no chemo/xrt after Problem List Medical Problems: (1) Chest pain Status: Acute (2) Chest pain, precordial Status: Acute (3) CHF (congestive heart failure) Status: Acute (4) Closed head injury Status: Acute (5) Contusion Status: Acute (6) DVT (deep venous thrombosis) Status: Acute (7) DVT (deep venous thrombosis) Status: Acute (8) Fall Status: Acute (9) Fall in home Status: Acute (10) Forehead contusion Status: Acute (11) Groin pain Status: Acute (12) Intertrochanteric fracture of left hip Status: Acute (13) Joint effusion of knee Status: Acute (14) Knee effusion, left Status: Acute (15) Knee pain Status: Acute (16) Neck muscle strain Status: Acute (17) New onset of congestive heart failure Status: Acute Review of Systems Constitutional: No fever Respiratory: + dyspnea on exertion, No cough, No sputum, No wheezing Cardiac: + edema, No chest pain, No orthopnea Abdomen: + problem reported (bloating), No pain, No GI bleeding Objective Vital Signs Date Time Temp Pulse Resp B/P (MAP) Pulse Ox O2 Delivery O2 Flow Rate FiO2 11/03/17 20:00 Room Air 11/03/17 19:49 36.9 77 20 150/88 (108) 93 Room Air 11/03/17 16:00 Room Air 11/03/17 15:03 37.0 83 18 165/81 (109) 93 Room Air 11/03/17 12:00 Room Air 11/03/17 11:57 36.7 75 18 161/90 (113) 94 11/03/17 08:00 Room Air 11/03/17 07:48 36.4 76 18 148/81 (103) 91 Room Air 11/03/17 04:28 36.5 76 16 138/79 (98) 92 Room Air 11/03/17 04:00 Room Air 11/03/17 00:36 36.8 80 16 147/89 (108) 95 Room Air 11/03/17 00:00 Room Air 11/02/17 21:20 37.0 84 20 159/79 94 Room Air Physical Exam General Appearance: + mild distress (tachypnea, mild retractions - but comfortable), + thin ENT: pharynx normal Neck: no JVD Respiratory/Chest: + respiratory distress (mild retractions and tachypnea), + decreased breath sounds (1/2 way to 2/3 up the right hemithorax), + crackles ( left base) Cardiovascular: regular rate, rhythm, no gallop, no murmur Abdomen: normal bowel sounds, non tender, soft, no organomegaly Extremities: + pedal edema (2-3+ on right, <1+ on left) Neurologic/Psychiatric: alert, oriented x 3 Skin: + pertinent finding (no significant erythema either leg ) Laboratory Results Last 24 Hours Test 11/03/17 02:00 11/03/17 05:18 11/03/17 08:41 11/03/17 10:13 Troponin I 0.070 ng/ml 0.061 ng/ml White Blood Count 5.55 K/uL Red Blood Count 4.12 M/uL Hemoglobin 12.4 g/dL Hematocrit 39.8 % Mean Corpuscular Volume 96.6 fL Mean Corpuscular Hemoglobin 30.1 pg Mean Corpuscular Hemoglobin Concent 31.2 g/dl Platelet Count 170 K/uL Mean Platelet Volume 11.3 fL Neutrophils (%) (Auto) 67.7 % Lymphocytes (%) (Auto) 22.9 % Monocytes (%) (Auto) 7.4 % Eosinophils (%) (Auto) 1.6 % Basophils (%) (Auto) 0.2 % Neutrophils # (Auto) 3.76 K/uL Lymphocytes # (Auto) 1.27 K/uL Monocytes # (Auto) 0.41 K/uL Eosinophils # (Auto) 0.09 K/uL Basophils # (Auto) 0.01 K/uL RDW Standard Deviation 54.4 fL RDW Coefficient of Variation 15.4 % Immature Granulocyte % (Auto) 0.2 % Immature Granulocyte # (Auto) 0.01 K/uL Sodium Level 141 mmol/L Potassium Level 4.1 mmol/L Chloride Level 106 mmol/L Carbon Dioxide Level 29 mmol/L Anion Gap 6.0 mmol/L Blood Urea Nitrogen 28 mg/dl Creatinine 1.33 mg/dl Est Creatinine Clear Calc Drug Dose 40.6 ml/min Estimated GFR () 58.5 Estimated GFR (Non- 50.5 BUN/Creatinine Ratio 21.1 Random Glucose 99 mg/dl Estimated Average Glucose 126 mg/dl Hemoglobin A1c 6.0 % Calcium Level 10.8 mg/dl Magnesium Level 2.0 mg/dl Total Bilirubin 0.9 mg/dl Aspartate Amino Transf (AST/SGOT) 15 U/L Alanine Aminotransferase (ALT/SGPT) 20 U/L Alkaline Phosphatase 142 U/L C-Reactive Protein 0.35 mg/dl Total Protein 5.9 gm/dl Albumin 2.6 gm/dl Globulin 3.3 gm/dl Albumin/Globulin Ratio 0.8 Triglycerides Level 56 mg/dl Cholesterol Level 135 mg/dl HDL Cholesterol 76 mg/dl LDL Cholesterol, Calculated 48 mg/dl VLDL Cholesterol, Calculated 11 mg/dl Cholesterol/HDL Ratio 1.8 Prothrombin Time 11.1 SECONDS Prothromb Time International Ratio 1.1 Activated Partial Thromboplast Time 30.1 SECONDS Partial Thromboplastin Ratio 1.2 Test 11/03/17 13:57 11/03/17 17:58 11/03/17 20:14 Troponin I 0.055 ng/ml Activated Partial Thromboplast Time 51.1 SECONDS Partial Thromboplastin Ratio 2.0 Assessment and Plan 77yo male with: 1. acute systolic CHF - chronicity of systolic CHF is unknown. The LV dysfunction is severe (15-20%). cause of this is unknown. appreciate cardiology consultation. consideration towards heart cath has been discussed to r/o CAD as the cause. no h/o heavy etoh to cause this issue. cont BB cont IV lasix diuresis for decompensation labs AM 2. b/l pleural effusions, right quite large with possible loculation - could be transudative from CHF. However, in light of gastric cancer history, need to be concerned about malignant effusion, or at least contributing to such. spoke with Dr. Walker who will see tomorrow. hold eliquis; transition to heparin infusion NPO after MN for possible intervention (thoracentesis, pleurX catheter, etc) tomorrow by Dr. Walker 3. h/o prior VTE, now with acute DVT LLE - he developed the new DVT despite being on eliquis. This treatment failure is concerning in light of his malignancy history. Stop eliquis. heparin drip in timothy. If malignancy-related then ultimately would need lovenox injections at d/c. 4. CKD stage 3 - creatinine stable, BMP in am for stability. 5. h/o gastric cancer s/p surgery at [facility] [place] - noted. See discussion above. 6. positive troponin - doubt ACS - no ischemic symptoms. Likely myocardial demand ischemia in setting of #1 above. 7. hypercalcemia - chronic - due to primary hyperparathyroidism. Patient aware of this and has known about such for several years. 8. early satiety - concerning for gastric cancer recurrence - consider CT abd/ pelvis. 9. h/o asthma - not active at this time. PT, OT consults updated Continued [facility] stay due to: multiple IV medications needed Discharge planning: uncertain
[2017-11-04 03:22] VITALS: BP 160/88; PULSE 86; TEMP 37.3; O2SAT 92
[2017-11-04 06:30] LABS: HEMATOCRIT 42.3 % (42-52); HEMOGLOBIN 13.4 g/dL (14.0-18.0); MEAN CELL VOLUME 95.9 fL (80-100); MEAN CORPUSCULAR HEMOGLOBIN 30.4 pg (25-34); MEAN CORPUSCULAR HGB CONC 31.7 g/dl (32-36); MEAN PLATELET VOLUME 11.4 fL (7.4-10.4); PLATELET COUNT 180 K/uL (130-400); RED CELL DISTRIBUTION WIDTH CV 15.4 % (11.5-14.5); RED CELL DISTRIBUTION WIDTH SD 53.9 fL (36.4-46.3); WHITE BLOOD COUNT 6.44 K/uL (4.8-10.8)
[2017-11-04 06:54] LABS: PTT PATIENT 63.4 SECONDS (21.0-31.0)
[2017-11-04 07:05] LABS: CALCIUM 10.9 mg/dl (8.5-10.1); CREATININE 1.5 mg/dl (0.60-1.40); POTASSIUM 4.3 mmol/L (3.5-5.1)
[2017-11-04 07:09] VITALS: BP 133/81; PULSE 81; TEMP 36.7; O2SAT 92
[2017-11-04] MEDS: FUROSEMIDE INJ 20 MG in SYRINGE 0 ML IV SCH ×2 (08:11→16:20)
[2017-11-04] MEDS: CYANOCOBALAMIN 100 MCG TAB (VIT B-12) PO SCH (08:11)
[2017-11-04] MEDS: TAMSULOSIN HCL 0.4 MG CAP PO SCH (08:11)
[2017-11-04] MEDS: METOPROLOL SUCC 25MG EXT REL TAB PO SCH (08:12)
[2017-11-04] MEDS: PANTOprazole SOD 40 MG TAB PO SCH ×2 (08:12→19:54)
[2017-11-04] MEDS: HEPARIN 25,000 UNIT/500ML D5W 500 ML IV SCH (08:26)
--- NOTE | 2017-11-04 10:18 | SURGICAL CONSULTATION ---
DATE OF CONSULTATION: 11/04/2017 REASON FOR CONSULTATION: Bilateral pleural effusions, right greater than left. HISTORY OF PRESENT ILLNESS: Reji Rock is a feeble 77-year-old male who will turn 78 this coming April. He has a history of peptic ulcer disease and was treated in the 1960s with a Billroth 2 and apparently had an antrectomy, vagotomy. It is unclear, this took place long ago. He was found to have a gastric cancer and about less than 2 years ago underwent a gastric resection at [facility]. He has had increasing left lower extremity swelling. He has a history of apparent hypercoagulable state and had deep vein thromboses in the past and in fact had a vena cava filter placed by Dr. Isidro within the last 2 years. As the lower extremity with swelling, he presented and was found to have bilateral pleural effusions; however, I reviewed his CT scan performed yesterday and that performed last April and he does have increased fluid but is not to a great degree. He is on room air. His feels that he has increasing shortness of breath. There are a couple of issues here. One is he has some renal insufficiency and the other is that he has had a marked decline in his cardiac function. He apparently was not treated with chemotherapy after surgery. The patient's ejection fraction between 50 and 55% in 2016 and his last echocardiogram which was just performed yesterday shows ejection fraction of between 15 and 20%. He had regional wall motion abnormalities. Dr. Ryan Dawson and I discussed this case yesterday. The patient is on heparin for his apparent acute deep vein thrombosis on ultrasound. He is on Eliquis and this has been held and he is on a heparin drip. I have been asked about this managing his pleural effusions from interventional standpoint. The patient had no fevers, had no chills. He is currently on a heparin drip. PAST MEDICAL HISTORY: 1. Markedly depressed LV function. 2. Renal insufficiency. 3. History of gastric carcinoma. 4. History of peptic ulcer disease. 5. Anemia. 6. Closed head injury in the past. 7. Apparent hypercoagulable state. 8. Deep vein thrombosis. 9. Hypercalcemia, which is chronic. 10. History of nephrolithiasis. 11. History of heavy cigarette smoking and drinking, but quit more than 30 years ago. 12. Marked levoscoliosis with degenerative changes in the spine. PAST SURGICAL HISTORY: 1. Insertion of vena cava filter. 2. Intertrochanteric fracture repair, left hip by Dr. Church. 3. Apparent gastrectomy in 2016. 4. Bilateral cataract extractions with lens implants. HOME MEDICATIONS: 1. Amitriptyline: 2. Eliquis. 3. Vitamin B12. 4. Lasix. 5. Ketoconazole topically. 6. Toprol. 7. Multivitamin. 8. Protonix. 9. Flomax. ALLERGIES: No known drug allergies. SOCIAL HISTORY: The patient used to smoke and drink heavily but quit in the . Lives at home with his . He works at a "[employer] He grew up here in [facility]. FAMILY MEDICAL HISTORY: The patient has 1 biological son and no biological grandchildren. His son is healthy. There is a history in his family of cancer which he would not specify, diabetes mellitus, coronary artery disease, hypertension, hyperlipidemia. REVIEW OF SYSTEMS: The patient has consistently lost weight over the last several years and has lost approximately 10 pounds; however, his weight has been relatively stable for the last year. He was 67.2 kilograms in October of 2016 and currently 65.5 kilograms. He denies night sweats. He does have trouble with ambulation and has fallen a couple of times, although he denies loss of consciousness. He denies melanotic stools. His biggest concern is his swollen legs. He does wear glasses but states his vision or his hearing has really changed. He has had no wound breakdown. He is worried about the swelling in his leg, although he has very little that today. He has had no productive cough or fevers or hemoptysis; however, he has been more dyspneic even though he does not push himself much. He denies chest pain. He has had no nausea, vomiting or diarrhea. He denies melena. He is on Flomax, but denies any dysuria or hematuria at this point. He denies any focal weakness, although he is unstable on his feet. He has had no transient ischemic attacks or amaurosis fugax. He denies palpitations. PHYSICAL EXAMINATION: GENERAL: This is a small man with marked kyphoscoliosis. He stands 5 feet 6 inches tall and weighs 144 pounds. HEENT: He wears glasses. He has evidence of cataract extractions with lens implants put off for evaluation of his eyes. His extraocular movements are intact. Sclerae are pale. He has slight left facial droop. He has no nasolabial flattening. His tongue is midline. NECK: Thin and supple. I detect no real neck vein distention and he has no carotid bruits. I detect no axillary adenopathy. LUNGS: He has decreased breath sounds in both lung adorno. He does have marked kyphosis. He has better breath sounds on the left than the right. He has a regular rate and rhythm of his heart with a systolic murmur. ABDOMEN: Soft with a well-healed incision. EXTREMITIES: He really does not have much in the way of edema now. He apparently had marked edema of both lower legs which is improved. He has easily palpable pulses with no joint effusions. NEUROLOGIC: He does have a left facial droop which is mild, but otherwise, I do not really find any focal deficits. I have difficulty understanding his speech. He is moving all extremities to command. ASSESSMENT AND PLAN: Bilateral pleural effusions. This really has not changed much since April. He is currently on a heparin drip. I believe offering this man a diagnostic thoracentesis would be our best bet. I will ask that the heparin be held at midnight and I will perform a thoracentesis in the morning.
[2017-11-04 11:43] VITALS: BP 127/77; PULSE 69; TEMP 36.4; O2SAT 96
[2017-11-04 15:43] VITALS: BP 125/76; PULSE 69; TEMP 36.8; O2SAT 94
--- NOTE | 2017-11-04 18:36 | Progress Note ---
Subjective Date of Service: Nov 04, 2017. Subjective Pt evaluation today including: conversation w/ patient, physical exam, chart review, lab review, review of inpatient medication list Pain: denies PO Intake: eating well Voiding: no voiding problems tele stable overnight denies any dyspnea at rest still w/ mild cough had urinary retention overnight requiring I/O cath mild confusion also noted by staff Problem List Medical Problems: (1) Chest pain Status: Acute (2) Chest pain, precordial Status: Acute (3) CHF (congestive heart failure) Status: Acute (4) Closed head injury Status: Acute (5) Contusion Status: Acute (6) DVT (deep venous thrombosis) Status: Acute (7) DVT (deep venous thrombosis) Status: Acute (8) Fall Status: Acute (9) Fall in home Status: Acute (10) Forehead contusion Status: Acute (11) Groin pain Status: Acute (12) Intertrochanteric fracture of left hip Status: Acute (13) Joint effusion of knee Status: Acute (14) Knee effusion, left Status: Acute (15) Knee pain Status: Acute (16) Neck muscle strain Status: Acute (17) New onset of congestive heart failure Status: Acute Review of Systems Respiratory: No dyspnea at rest Cardiac: No chest pain Abdomen: No pain Objective Vital Signs Date Time Temp Pulse Resp B/P (MAP) Pulse Ox O2 Delivery O2 Flow Rate FiO2 11/04/17 16:00 Room Air 11/04/17 15:43 36.8 69 17 125/76 (92) 94 Room Air 11/04/17 12:00 Room Air 11/04/17 11:43 36.4 69 16 127/77 (94) 96 Room Air 11/04/17 08:00 Room Air 11/04/17 07:09 36.7 81 16 133/81 (98) 92 Room Air 11/04/17 04:00 Room Air 11/04/17 03:22 37.3 86 20 160/88 (112) 92 Room Air 11/04/17 00:00 Room Air 11/03/17 23:39 36.9 81 18 159/92 (114) 91 Room Air 11/03/17 20:00 Room Air 11/03/17 19:49 36.9 77 20 150/88 (108) 93 Room Air Physical Exam General Appearance: no apparent distress, + thin ENT: pharynx normal Neck: no JVD Respiratory/Chest: no respiratory distress, no accessory muscle use, + decreased breath sounds (2/3 way up back on right; minimally decreased left base ) Cardiovascular: regular rate, rhythm, no gallop, no murmur Abdomen: normal bowel sounds, non tender, soft, no organomegaly, + pertinent finding (protuberant) Extremities: + pedal edema (<1+ on right, trace on left) Neurologic/Psychiatric: alert Laboratory Results Last 24 Hours Test 11/03/17 20:14 11/04/17 05:24 Troponin I 0.056 ng/ml White Blood Count 6.44 K/uL Red Blood Count 4.41 M/uL Hemoglobin 13.4 g/dL Hematocrit 42.3 % Mean Corpuscular Volume 95.9 fL Mean Corpuscular Hemoglobin 30.4 pg Mean Corpuscular Hemoglobin Concent 31.7 g/dl RDW Standard Deviation 53.9 fL RDW Coefficient of Variation 15.4 % Platelet Count 180 K/uL Mean Platelet Volume 11.4 fL Activated Partial Thromboplast Time 63.4 SECONDS Partial Thromboplastin Ratio 2.4 Sodium Level 138 mmol/L Potassium Level 4.3 mmol/L Chloride Level 102 mmol/L Carbon Dioxide Level 29 mmol/L Anion Gap 7.0 mmol/L Blood Urea Nitrogen 30 mg/dl Creatinine 1.50 mg/dl Est Creatinine Clear Calc Drug Dose 36.0 ml/min Estimated GFR () 50.6 Estimated GFR (Non- 43.7 BUN/Creatinine Ratio 19.8 Random Glucose 105 mg/dl Calcium Level 10.9 mg/dl Magnesium Level 1.8 mg/dl Assessment and Plan 77yo male with: 1. acute systolic CHF - chronicity & cause of systolic CHF is unknown. The LV dysfunction is severe (15-20%). consideration towards heart cath has been discussed to r/o CAD as the cause. cont BB cont IV lasix diuresis for decompensation labs AM daily weights 2. b/l pleural effusions, right quite large with possible loculation - could be transudative from CHF. However, in light of gastric cancer history, need to be concerned about malignant effusion, or at least contributing to such. spoke with Dr. Walker who will see perform thoracentesis tomorrow AM hold heparin starting at midnight tonight 3. h/o prior VTE, now with acute DVT LLE - he developed the new DVT despite being on eliquis. This treatment failure is concerning in light of his malignancy history. Stopped eliquis; now on heparin infusion. If malignancy-related then ultimately would need lovenox injections at d/c. 4. CKD stage 3 - creatinine largely stable with slight rise overnight; BMP in am for stability. 5. h/o gastric cancer s/p surgery at [facility] - noted. See discussion above. 6. positive troponin - doubt ACS - no ischemic symptoms. Likely myocardial demand ischemia in setting of #1 above. 7. hypercalcemia - chronic - due to primary hyperparathyroidism. Patient aware of this and has known about such for several years. 8. early satiety - concerning for gastric cancer recurrence - consider CT abd/ pelvis while hospitalized. 9. h/o asthma - not active at this time. 10. urinary retention - s/p I/O cath overnight; if he retains again would simply place chavarria. Cont flomax for BPH. PT, OT consults Continued [facility] stay due to: multiple IV medications needed Discharge planning: uncertain
[2017-11-04 18:42] VITALS: BP 135/74; PULSE 71; TEMP 36.9; O2SAT 91
--- NOTE | 2017-11-04 19:16 | Cardiology Follow-Up ---
Subjective Date of Service: Nov 04, 2017. Pt evaluation today including: conversation w/ patient, conversation w/ family , physical exam, chart review, lab review, review of studies, review of inpatient medication list History of Present Illness This evening the patient claims to be feeling well. He states that his breathing is stable. He does not report shortness of breath even while lying flat. He thinks that his lower extremity edema may be improved. He has not report any leg pain or chest pain. Social History Smoking Status: Never Smoker History of Alcohol Use: Yes (QUIT 1986) Review of Systems Respiratory: No dyspnea at rest Cardiac: No chest pain Per HPI. Patient claims to be urinating normally. He has not been aware of any palpitations or rapid heartbeats. Objective Vital Signs Past 12 Hours Date Time Temp Pulse Resp B/P (MAP) Pulse Ox O2 Delivery O2 Flow Rate FiO2 11/04/17 16:00 Room Air 11/04/17 15:43 36.8 69 17 125/76 (92) 94 Room Air 11/04/17 12:00 Room Air 11/04/17 11:43 36.4 69 16 127/77 (94) 96 Room Air 11/04/17 08:00 Room Air Last Recorded Weight-Kilograms: 65.500 Intake & Output 8-Hour Column 11/04/17 11/05/17 11/05/17 16:00 00:00 08:00 Intake Total 502 ml Output Total 175 ml Balance 327 ml 24-Hour Column 11/05/17 08:00 Intake Total 502 ml Output Total 175 ml Balance 327 ml Physical Exam The patient is alert and oriented. Mood and affect appeared normal. He answered all questions appropriately. HEENT: Pupils are equal and reactive to light and accommodation. Extraocular movements are intact. The sclerae are anicteric. Neuro: Cranial nerves intact Neck: Patient's neck is supple. He has palpable carotid pulses bilaterally without bruits on auscultation. There is no evidence of jugular venous distention. The thyroid is not enlarged. Lungs: Clear to auscultation bilaterally. He has good air movement without use of accessory muscles. No rales wheezes or rhonchi. Cardiac: Heart demonstrates a regular rate and rhythm. Normal S1 and S2. Holosystolic murmur heard best at the axilla. Pulses: The patient has palpable radial pulses bilaterally that are equal in intensity Extremities: There was no evidence of hypoperfusion. There is no cyanosis or clubbing. Mild peripheral edema of the lower extremities right worse than left Skin: I did not appreciate any rashes on examination today. Data Laboratory Results: Last 24 Hours Test 11/03/17 20:14 11/04/17 05:24 Troponin I 0.056 ng/ml White Blood Count 6.44 K/uL Red Blood Count 4.41 M/uL Hemoglobin 13.4 g/dL Hematocrit 42.3 % Mean Corpuscular Volume 95.9 fL Mean Corpuscular Hemoglobin 30.4 pg Mean Corpuscular Hemoglobin Concent 31.7 g/dl RDW Standard Deviation 53.9 fL RDW Coefficient of Variation 15.4 % Platelet Count 180 K/uL Mean Platelet Volume 11.4 fL Activated Partial Thromboplast Time 63.4 SECONDS Partial Thromboplastin Ratio 2.4 Sodium Level 138 mmol/L Potassium Level 4.3 mmol/L Chloride Level 102 mmol/L Carbon Dioxide Level 29 mmol/L Anion Gap 7.0 mmol/L Blood Urea Nitrogen 30 mg/dl Creatinine 1.50 mg/dl Est Creatinine Clear Calc Drug Dose 36.0 ml/min Estimated GFR () 50.6 Estimated GFR (Non- 43.7 BUN/Creatinine Ratio 19.8 Random Glucose 105 mg/dl Calcium Level 10.9 mg/dl Magnesium Level 1.8 mg/dl Telemetry reviewed: Sinus rhythm Assessment and Plan 1. Acute decompensated systolic heart failure: Will continue diuresis. He has not responded very well to the current dose of diuretic but given the possibility of coronary angiography tomorrow I think we will defer change in his diuretic regimen. Appears to be fairly well compensated based on his absence of symptoms. However, he does have objective evidence of pulmonary vascular congestion I think continue his diuresis while monitoring his renal function is appropriate. Hopefully at some point we will have an opportunity to measure the intracardiac pressures directly. This will help to guide therapy. 2. Cardiomyopathy: Will continue medical therapy. The patient seems more amenable to coronary angiography. I did have discussion regarding the test with his in the room today. If he consents we may have an opportunity to perform tomorrow after his thoracentesis. Tolerating beta-kush currently. We may possibly be able to institute ROBERTO CARLOS-inhibitor therapy as well depending on his renal function. 3. Valvular heart disease: Patient has moderate mitral regurgitation. 4. Elevated troponin: He continues to have a very mild elevation of troponin which likely related to his degree of cardiomyopathy and renal function. I do not think any additional values are required.
[2017-11-04] MEDS: AMITRIPTYLINE HCL 50 MG TAB PO SCH (19:55)
[2017-11-04 23:55] VITALS: BP 133/76; PULSE 74; TEMP 36.6; O2SAT 92
[2017-11-05] VITALS (16 sets, daily range): BP systolic 126–171; BP diastolic 47–91; PULSE 67–85; TEMP 36.4–37; O2SAT 90–100
[2017-11-05 06:38] LABS: PTT PATIENT 27.5 SECONDS (21.0-31.0)
[2017-11-05 06:41] LABS: CALCIUM 10.5 mg/dl (8.5-10.1); CREATININE 1.57 mg/dl (0.60-1.40); POTASSIUM 3.8 mmol/L (3.5-5.1)
--- NOTE | 2017-11-05 08:46 | DIAGNOSTIC IMAGING REPORT ---
CHEST ONE VIEW PORTABLE CLINICAL HISTORY: thoracentesis postthoracentesis COMPARISON STUDY: 11/02/2017 FINDINGS: No significant pneumothorax postthoracentesis. Bilateral basilar densities persist. IMPRESSION: No evidence pneumothorax postthoracentesis. The above report was generated using voice recognition software. It may contain grammatical, syntax or spelling errors. Electronically signed by: Ignacio Kaplan M.D. 11/05/2017 8:45 AM Dictated Date/Time: 11/05/2017 8:44 AM
[2017-11-05] MEDS: METOPROLOL SUCC 25MG EXT REL TAB PO SCH (08:52)
[2017-11-05] MEDS: PANTOprazole SOD 40 MG TAB PO SCH ×2 (08:52→20:39)
[2017-11-05] MEDS: CYANOCOBALAMIN 100 MCG TAB (VIT B-12) PO SCH (08:52)
[2017-11-05] MEDS: TAMSULOSIN HCL 0.4 MG CAP PO SCH (08:52)
[2017-11-05] MEDS: FUROSEMIDE INJ 20 MG in SYRINGE 0 ML IV SCH (08:53)
--- NOTE | 2017-11-05 09:03 | SURGERY PROGRESS NOTE ---
DATE: 11/05/2017 Mr. Rock was seen today on 11/05/2017. We stopped his heparin drip at midnight and it is now 8:00. His PTT is normalized. The patient asked that his to be present so I told him we would have to put this off until this afternoon. However, he then stated he would like to go ahead and have it done so we are going to offer him a right thoracentesis under ultrasound guidance this morning. I had a long talk with him again about benefits and possible complications. I believe it is going to make him feel better. We discussed bleeding, a collapsed lung and infections. He understands. I also talked about the possibility of reexpansion pulmonary edema. He understands. I will get him set up for this today.
--- NOTE | 2017-11-05 09:14 | OPERATIVE REPORT ---
DATE OF OPERATION: 11/05/2017 PREOPERATIVE DIAGNOSIS: Large right pleural effusion. POSTOPERATIVE DIAGNOSIS: Same. PROCEDURE: Right thoracentesis under ultrasound guidance. SURGEON: Stone Walker MD PIGS FEET CLEANER: LEAH Bishop ANESTHESIA: Local. SPECIFICS OF PROCEDURE: The patient was in the upright position. An ultrasound was used to find a good window. This was actually laterally at about the seventh interspace. He was prepped and draped in the usual sterile fashion. After appropriate timeout had been called, 0.5% Xylocaine without epinephrine was used with a 25-gauge needle to raise a skin wheal and anesthetize the deeper subcutaneous tissues, muscle and pleura. I then used a large bore needle and free flowing fluid was obtained. The needle was removed and guidewire inserted through the needle. The needle was removed. An introducer sheath was used to dilate up the insertion tract slightly and then removed. A triple lumen catheter was then slid in to 18 cm and the guidewire removed. 1200 mL of a light colored fluid was drained. He had reexpansion coughing, but no pain. I actually could not get any more fluid out and removed the catheter. The site was clean and not bleeding. Antimicrobial was placed. Chest x-ray showed no evidence of pneumothorax and good resolution of the fluid. He tolerated it well. I attest to the content of the Intraoperative Record and any orders documented therein. Any exceptions are noted below. YOMAIRAD
[2017-11-05 09:57] LABS: PLEURAL FLUID TOTAL PROTEIN 1.6 g/dl
[2017-11-05] MEDS ORDERED: NITROGLYCERIN/D5W 100MCG/ML 20ML SYR ONE (12:42)
[2017-11-05] MEDS ORDERED: HEPARIN SOD (PORCINE) 1000 UNIT/ML 10 ML VIAL ONE (12:42)
[2017-11-05] MEDS ORDERED: MIDAZOLAM HCL 1 MG/ML 2ML VIAL ONE (12:42)
[2017-11-05] MEDS ORDERED: FENTANYL CITRATE INJ 50 MCG/1 ML 2 ML VIAL ONE (12:42)
[2017-11-05] MEDS ORDERED: NiCARDipine HCL INJ 2.5 MG/ML 10 ML AMP ONE (12:42)
--- NOTE | 2017-11-05 12:52 | Post Sedation Assessment ---
Post Sedation Assessment General Date of Sedation Nov 05, 2017. Vital Signs: Vital Signs Past 12 Hours Date Time Temp Pulse Resp B/P (MAP) Pulse Ox O2 Delivery O2 Flow Rate FiO2 11/05/17 12:00 Room Air 11/05/17 11:27 36.6 70 16 146/80 (102) 97 Room Air 11/05/17 08:00 Room Air 11/05/17 07:37 36.7 79 16 166/91 (116) 92 Room Air 11/05/17 04:00 Room Air 11/05/17 03:46 36.4 70 18 126/47 (73) 96 Room Air Post Procedure Recovery Score Activity: (2) Moves 4 extremities * Respiration: (2) Deep breath/cough Circulation: (2) +/-20% PreAnes Value Consciousness: (2) Fully Awake Oxygen Saturation: (2) > 92% On Room Air Discharge Sedation Level of Care: Fast Track Phase II Post Sedation Plan On clinical assessment, the patient appears to have tolerated the sedation without complications. Patient is recovering as anticipated. Patient will continue to be monitored by nursing and may be discharged when sedation discharge criteria are met per below protocol. Upon Completions of procedure and additional 15 minutes continue every 5 minute vital signs and the P.A.R. score; then discharge to a Phase I or Fast Track to Phase II per the following guidelines: * Discharge Patient to appropriate Phase II area if PAR is 8 or greater or return to pre- procedure baseline. The post - procedure orders will be as directed. * If PAR score is less than 8 or not return to pre-procedure baseline then patient will follow Phase I monitoring till PAR is reached for Phase II. The Phase I may be done in procedure room or may call to secure a Phase I area. * If naloxone or flumazenil are used for reversal, hold in Phase I for an additional 60 -120 minutes before discharge to Phase II. Please call the Sedation Physician to re-evaluate and complete post-note for discharge to Phase II area. Do NOT discharge from procedure sedation or Phase 1 until post- sedation evaluation note is complete by procedure /sedation MD Sedation Discharge Instructions to be given to the patient at discharge to home.
[2017-11-05] MEDS ORDERED: ACETAMINOPHEN 325 MG TAB PO PRN (13:00)
[2017-11-05] MEDS ORDERED: SODIUM CHLORIDE 0.9% 1000ML 1,000 ML IV SCH ×2 (13:00→15:15)
[2017-11-05] MEDS ORDERED: LIDOCAINE HCL 1% 20 ML VIAL ONE (13:08)
--- NOTE | 2017-11-05 14:06 | [facility] Operative Report ---
Operative Report Date of Service Nov 05, 2017. Operative Report Procedure: [facility], coronary angiography Road Machinery Inspector: Ed Joyner MD Indication: Patient is a 77-year-old gentleman without a known history of coronary disease who presented to [facility] with evidence of decompensated systolic congestive heart failure. He was noted to have new cardiomyopathy on echocardiogram and based on his risk factors and objective findings was felt to be a good candidate for coronary angiography. Procedure in detail: The patient was informed of the risks benefits and alternatives to the intended procedure and wished to proceed. He was taken to the cardiac catheterization suite in a fasting state. Conscious sedation was administered per protocol the patient was monitored electrocardiographically throughout today's procedure. The right wrist area was prepped and draped in usual sterile fashion this area was anesthetized using subcutaneous administration of lidocaine solution. The right ulnar artery was subsequently access using Seldinger technique and a 5 Hebrew arterial sheath was placed at the site over guidewire. This sheath was used to facilitate passage of the cardiac catheters for selective coronary angiography and left heart catheterization. Coronary images were taken in multiple orthogonal views prior to removal of the catheters and sheath. Hemostasis was achieved at the access site using manual pressure. The patient tolerated the procedure well. There were no immediate complications. Hemodynamics: Opening aortic pressure is 117/80 Left ventricular pressure was 124/3 Left ventricular end-diastolic pressure was 7 Closing aortic pressure was 133/88 Coronary angiography: Left main left main coronary artery was short but bifurcated normally into the left anterior descending and left circumflex. There is no significant disease in this segment Left anterior descending left anterior descending was a large transapical vessel with calcifications in its proximal portion. There is no significant compromise of the lumen approximately. He produced a very large 1st diagonal branch and a smaller 2nd diagonal branch. He was a transapical vessel. There was approximately 70% stenosis in the proximal portion of the 2nd diagonal branch. Otherwise there are luminal irregularities without obstructive disease in this distribution Left circumflex left circumflex artery was a dominant vessel. It produced a very large 1st OM system and a medium size 2nd OM system which formed portion of the PDA. There is no significant obstructive disease in this distribution Right coronary artery: Right coronary artery was a diminutive non dominant vessel. There is no significant obstructive disease. Impression: Normal intracardiac pressures Left dominant system Branch vessel disease involving the 2nd diagonal Nonischemic cardiomyopathy I attest to the content of the Intraoperative Record and any orders documented therein. Any exceptions are noted below.
[2017-11-05] MEDS ORDERED: NURSING VERBAL MED ORDER ONE (15:00)
--- NOTE | 2017-11-05 16:31 | Cardiology Follow-Up ---
Subjective Date of Service: Nov 05, 2017. Pt evaluation today including: conversation w/ patient, conversation w/ family , physical exam, chart review, lab review, review of studies, review of inpatient medication list, conversation w/ attending History of Present Illness This morning patient was feeling well. He stated his breathing was normal. He did not have any dyspnea while lying flat. He is not aware of any chest discomfort or sense of palpitation. Social History Smoking Status: Never Smoker History of Alcohol Use: Yes (QUIT 1986) Review of Systems Respiratory: No dyspnea at rest Cardiac: No chest pain Per HPI. Patient claims to be urinating normally. He has not been aware of any palpitations or rapid heartbeats. Objective Vital Signs Past 12 Hours Date Time Temp Pulse Resp B/P (MAP) Pulse Ox O2 Delivery O2 Flow Rate FiO2 11/05/17 14:45 76 16 165/87 (113) 90 Room Air 11/05/17 14:30 67 16 171/91 (117) 90 Room Air 11/05/17 14:15 36.6 70 16 157/80 (105) 93 Room Air 11/05/17 13:51 72 16 143/77 (99) 97 Room Air 11/05/17 12:00 Room Air 11/05/17 11:27 36.6 70 16 146/80 (102) 97 Room Air 11/05/17 08:00 Room Air 11/05/17 07:37 36.7 79 16 166/91 (116) 92 Room Air Last Recorded Weight-Kilograms: 68.200 Intake & Output 8-Hour Column 11/05/17 11/06/17 11/06/17 16:00 00:00 08:00 Output Total 200 ml Balance -200 ml 24-Hour Column 11/06/17 08:00 Output Total 200 ml Balance -200 ml Physical Exam The patient is alert and oriented. Mood and affect appeared normal. He answered all questions appropriately. HEENT: Pupils are equal and reactive to light and accommodation. Extraocular movements are intact. The sclerae are anicteric. Neuro: Cranial nerves intact Neck: Patient's neck is supple. He has palpable carotid pulses bilaterally without bruits on auscultation. There is no evidence of jugular venous distention. The thyroid is not enlarged. Lungs: Clear to auscultation bilaterally. He has good air movement without use of accessory muscles. No rales wheezes or rhonchi. Cardiac: Heart demonstrates a regular rate and rhythm. Normal S1 and S2. Holosystolic murmur heard best at the axilla. Pulses: The patient has palpable radial pulses bilaterally that are equal in intensity Extremities: There was no evidence of hypoperfusion. There is no cyanosis or clubbing. Mild peripheral edema of the lower extremities right worse than left Skin: I did not appreciate any rashes on examination today. Data Laboratory Results: Last 24 Hours Test 11/05/17 05:19 11/05/17 08:11 11/05/17 08:14 Activated Partial Thromboplast Time 27.5 SECONDS Partial Thromboplastin Ratio 1.1 Sodium Level 140 mmol/L Potassium Level 3.8 mmol/L Chloride Level 103 mmol/L Carbon Dioxide Level 30 mmol/L Anion Gap 7.0 mmol/L Blood Urea Nitrogen 33 mg/dl Creatinine 1.57 mg/dl Est Creatinine Clear Calc Drug Dose 34.4 ml/min Estimated GFR () 47.9 Estimated GFR (Non- 41.3 BUN/Creatinine Ratio 21.2 Random Glucose 93 mg/dl Calcium Level 10.5 mg/dl Magnesium Level 1.9 mg/dl Pleural Fluid pH 7.39 Pleural Fluid Source RIGHT LUNG Pleural Fluid Color PINK Pleural Fluid Appearance HAZY Pleural Fluid WBC 327 /uL Pleural Fluid RBC 68261 /uL Pleural Fluid Polynuclear WBCs % 10.9 % Pleural Fluid Mononuclear WBCs % 89.1 % Pleural Fluid Total Protein 1.6 g/dl Pleural Fluid LDH 40 IU Pleural Fluid Glucose 107 mg/dl Pleural Fluid Amylase 26 U/L Telemetry reviewed: Normal sinus rhythm Assessment and Plan 1. Acute decompensated systolic heart failure: Patient underwent coronary angiography and left heart catheterization today. Left ventricular filling pressures were normal. He does not appear to choir any additional diuresis at this point. His breathing was actually not significantly compromised the time of his admission. I think we can simply monitor his weight on an outpatient basis and provide an element of diuresis as needed. 2. Cardiomyopathy: Coronary angiography did not reveal any evidence of obstructive coronary disease. 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 He is on a beta-kush and would benefit would be on Rl inhibition. Given the contrast administered today and his history of renal dysfunction I think this can be deferred temporarily, but will likely try titration in the outpatient setting. An alternative would be use of hydralazine and nitrates. The etiology is cardiomyopathy is unclear. Will run a few serum studies including thyroid, iron studies and phosphorus. He did not have a significantly elevated CRP is suggest an inflammatory or autoimmune process. There is a small possibility of an infiltrative process especially given his mildly elevated markers. However, he did not have significant LVH on echocardiography. 3. Valvular heart disease: Patient has moderate mitral regurgitation. 4. Elevated troponin: Not related to coronary disease. Likely related to his cardiomyopathy.
[2017-11-05] MEDS ORDERED: WARFARIN SOD 5 MG TAB PO ONE (18:45)
[2017-11-05] MEDS: AMITRIPTYLINE HCL 50 MG TAB PO SCH (20:39)
[2017-11-05] MEDS ORDERED: TICAGRELOR 90 MG TAB PO SCH (21:00)
[2017-11-06] VITALS (7 sets, daily range): BP systolic 104–144; BP diastolic 54–76; PULSE 65–75; TEMP 36.5–37.2; O2SAT 92–96
[2017-11-06] MEDS: HEPARIN 25,000 UNIT/500ML D5W 500 ML IV SCH (05:05)
--- NOTE | 2017-11-06 05:34 | Progress Note ---
Subjective Date of Service: late entry for visit November 05, 2017. Subjective Pt evaluation today including: conversation w/ patient, conversation w/ family ( at bedside), physical exam, chart review, lab review, review of studies ( thoracentesis, heart cath), conversation w/ technology consultant (cardiology, anticoagulation (Dr. Romero)), review of inpatient medication list Pain: none PO Intake: npo for procedures Voiding: requires PRN straight cath patient had 1200cc out with right-sided thoracentesis this am his breathing is much better denies any dyspnea this am he is irritated about being NPO tele stable overnight PT, OT both recommending rehab Problem List Medical Problems: (1) Chest pain Status: Acute (2) Chest pain, precordial Status: Acute (3) CHF (congestive heart failure) Status: Acute (4) Closed head injury Status: Acute (5) Contusion Status: Acute (6) DVT (deep venous thrombosis) Status: Acute (7) DVT (deep venous thrombosis) Status: Acute (8) Fall Status: Acute (9) Fall in home Status: Acute (10) Forehead contusion Status: Acute (11) Groin pain Status: Acute (12) Intertrochanteric fracture of left hip Status: Acute (13) Joint effusion of knee Status: Acute (14) Knee effusion, left Status: Acute (15) Knee pain Status: Acute (16) Neck muscle strain Status: Acute (17) New onset of congestive heart failure Status: Acute Review of Systems Constitutional: No fever Respiratory: No cough, No shortness of breath Cardiac: No orthopnea, No edema Abdomen: + constipation (?), No pain Objective Vital Signs Date Time Temp Pulse Resp B/P (MAP) Pulse Ox O2 Delivery O2 Flow Rate FiO2 11/06/17 04:08 36.5 72 18 130/74 (92) 95 Nasal Cannula 2.0 11/06/17 04:00 Nasal Cannula 2.0 11/06/17 00:11 36.5 68 16 144/76 (98) 93 Nasal Cannula 2.0 11/05/17 23:59 Nasal Cannula 2.0 11/05/17 21:17 36.7 85 16 135/72 (93) 97 Nasal Cannula 2.0 11/05/17 20:00 Nasal Cannula 2.0 11/05/17 19:01 36.6 69 18 148/80 (102) 97 Nasal Cannula 2.0 11/05/17 18:45 36.9 85 18 145/65 (91) 98 Nasal Cannula 2.0 80 11/05/17 17:45 36.8 80 16 140/70 (93) 97 Nasal Cannula 2.0 11/05/17 17:15 36.8 85 18 145/80 (101) 98 Nasal Cannula 2.0 11/05/17 16:45 36.7 81 18 144/75 (98) 100 Nasal Cannula 2.0 11/05/17 16:15 37.0 80 16 156/70 (98) 95 Nasal Cannula 2.0 11/05/17 16:00 Room Air 11/05/17 16:00 36.7 75 16 135/85 (102) 92 Room Air 11/05/17 15:45 36.8 76 18 154/65 (94) 94 Nasal Cannula 2.0 11/05/17 15:15 36.8 80 18 160/87 (111) 95 Nasal Cannula 2.0 11/05/17 14:45 76 16 165/87 (113) 90 Room Air 11/05/17 14:30 67 16 171/91 (117) 90 Room Air 11/05/17 14:15 36.6 70 16 157/80 (105) 93 Room Air 11/05/17 13:51 72 16 143/77 (99) 97 Room Air 11/05/17 12:00 Room Air 11/05/17 11:27 36.6 70 16 146/80 (102) 97 Room Air 11/05/17 08:00 Room Air 11/05/17 07:37 36.7 79 16 166/91 (116) 92 Room Air Physical Exam General Appearance: no apparent distress ENT: pharynx normal (lips/MM mildly dry) Neck: no JVD Respiratory/Chest: no respiratory distress, no accessory muscle use, + decreased breath sounds (minimal, right - airation much improved this side), + rales (hint of - left base) Cardiovascular: regular rate, rhythm, no gallop, + systolic murmur (1/6 LLSB) Abdomen: normal bowel sounds, non tender, soft, no organomegaly, + pertinent finding (protuberant) Extremities: no pedal edema Neurologic/Psychiatric: alert Laboratory Results Last 24 Hours Test 11/05/17 08:11 11/05/17 08:14 11/06/17 05:21 Pleural Fluid pH 7.39 Pleural Fluid Source RIGHT LUNG Pleural Fluid Color PINK Pleural Fluid Appearance HAZY Pleural Fluid WBC 327 /uL Pleural Fluid RBC 02532 /uL Pleural Fluid Polynuclear WBCs % 10.9 % Pleural Fluid Mononuclear WBCs % 89.1 % Pleural Fluid Total Protein 1.6 g/dl Pleural Fluid LDH 40 IU Pleural Fluid Glucose 107 mg/dl Pleural Fluid Amylase 26 U/L Assessment and Plan 77yo male with: 1. acute systolic CHF - chronicity & cause of systolic CHF is unknown. The LV dysfunction is severe (15-20%). s/p heart cath today with only 1 branch vessel with disease otherwise normal cath cont BB stop IV lasix labs AM daily weights appreciate Dr. Joyner's assistance 2. b/l pleural effusions, right quite large with possible loculation - s/p thoracentesis on right today - 1200cc out - looks transudative, probably from CHF await pathologies appreciate thoracic surgery assistance 3. h/o prior VTE, now with acute DVT LLE - he developed the new DVT despite being on eliquis. This treatment failure is concerning in light of his malignancy history. Stopped eliquis; now on heparin infusion. Pt/ not amenable to long-term lovenox use. Will go with coumadin. This was discussed with anticoagulation clinical pharmacy technician. 4. CKD stage 3 - creatinine largely stable; BMP am. 5. h/o gastric cancer s/p surgery at [facility] [place] - noted. 6. positive troponin - doubt ACS - no ischemic symptoms. Likely myocardial demand ischemia in setting of #1 above. 7. hypercalcemia - chronic - due to primary hyperparathyroidism. Patient aware of this and has known about such for several years. 8. early satiety - concerning for gastric cancer recurrence - consider CT abd/ pelvis. 9. h/o asthma - not active at this time. 10. urinary retention - s/p I/O cath overnight once again; if he retains one more time would simply place chavarria. Cont flomax for BPH. PT, OT consults recommending rehab Continued [facility] stay due to: multiple IV medications needed Discharge planning: uncertain
[2017-11-06 06:06] LABS: HEMATOCRIT 40.3 % (42-52); HEMOGLOBIN 12.8 g/dL (14.0-18.0); MEAN CELL VOLUME 96.6 fL (80-100); MEAN CORPUSCULAR HEMOGLOBIN 30.7 pg (25-34); MEAN CORPUSCULAR HGB CONC 31.8 g/dl (32-36); MEAN PLATELET VOLUME 11.6 fL (7.4-10.4); PLATELET COUNT 175 K/uL (130-400); RED CELL DISTRIBUTION WIDTH CV 15.1 % (11.5-14.5); RED CELL DISTRIBUTION WIDTH SD 52.8 fL (36.4-46.3); WHITE BLOOD COUNT 4.15 K/uL (4.8-10.8)
[2017-11-06 06:22] LABS: PTT PATIENT 43.8 SECONDS (21.0-31.0)
[2017-11-06 06:49] LABS: CALCIUM 10.2 mg/dl (8.5-10.1); CREATININE 1.54 mg/dl (0.60-1.40)
[2017-11-06 07:00] LABS: PHOSPHORUS 3.6 mg/dl (2.5-4.9)
--- NOTE | 2017-11-06 07:08 | DIAGNOSTIC IMAGING REPORT ---
CHEST ONE VIEW PORTABLE CLINICAL HISTORY: 77 years-old Male presenting with effusion . TECHNIQUE: Portable upright AP view of the chest was obtained. COMPARISON: Chest CT from 11/02/2017 and chest x-ray from 11/05/2017. FINDINGS: The patient is JAMES rotated. Atherosclerosis of aortic arch. Cardiac silhouette enlarged. Bibasilar opacities unchanged. Small bilateral pleural effusions. No large pneumothorax. Osteopenia suspected. IVC filter and numerous epigastric surgical clips. External leads overlie the lower mediastinum and upper abdomen degrading evaluation. IMPRESSION: 1. Small bilateral pleural effusions with bibasilar opacities unchanged. No pneumothorax. Electronically signed by: Mathieu Best M.D. 11/06/2017 7:07 AM Dictated Date/Time: 11/06/2017 7:05 AM
[2017-11-06] MEDS ORDERED: HEPARIN IV BOLUS 3,000 UNIT in SYRINGE 0 ML IV ONE (07:45)
--- NOTE | 2017-11-06 09:17 | SURGERY PROGRESS NOTE ---
DATE: 11/06/2017 Mr. Rock was seen today on 11/06/2016. He had an uneventful day yesterday. He had a cardiac catheterization which showed no significant coronary artery disease. We tapped him for 1200 mL for a transudate. He states his breathing is better. He has a nonischemic cardiomyopathy. I talked to Dr. Joyner about this. There are some tests pending to see if we can determine etiology. However, as we discussed it is unlikely that we will come up with an etiology. His chest x-ray today showed a small right pleural effusion, but his x-ray is better and clinically he is better from a pulmonary standpoint, although he was still on room air before we tapped him. At this point, I would continue to follow him, but I do not believe I would insert a PleurX catheter in this patient unless he becomes more symptomatic.
[2017-11-06] MEDS: TAMSULOSIN HCL 0.4 MG CAP PO SCH (09:22)
[2017-11-06] MEDS: METOPROLOL SUCC 25MG EXT REL TAB PO SCH (09:22)
[2017-11-06] MEDS: PANTOprazole SOD 40 MG TAB PO SCH ×2 (09:22→21:18)
[2017-11-06] MEDS: CYANOCOBALAMIN 100 MCG TAB (VIT B-12) PO SCH (09:22)
[2017-11-06] MEDS: FERROUS SULFATE 325 MG TAB PO SCH ×2 (09:23→21:18)
[2017-11-06 12:20] LABS: INR 1.1 (0.9-1.1)
--- NOTE | 2017-11-06 13:58 | DIAGNOSTIC IMAGING REPORT ---
CT SCAN OF THE ABDOMEN AND PELVIS WITHOUT IV CONTRAST CLINICAL HISTORY: Weight loss. Iron deficiency anemia. Reported history of gastric cancer. COMPARISON STUDY: Abdominal CT dated 03/12/2016. TECHNIQUE: CT scan of the abdomen and pelvis is performed from the lung bases to the proximal femora. Images are reviewed in the axial, sagittal, and coronal planes. IV contrast was not administered for this examination as per the referring clinician. Note that the examination was performed in significantly suboptimal fashion without IV contrast. Oral contrast was utilized. The examination is also degraded by motion artifact. A dose lowering technique was utilized adhering to the principles of ALARA. CT DOSE: 374.89 mGy.cm FINDINGS: Lung bases: The heart is enlarged and there is trace pericardial effusion. The coronary arteries are densely calcified. There are small to moderate pleural effusions with associated atelectasis. Liver: The unenhanced liver is normal in size, contour, and attenuation. There is no intrahepatic biliary ductal dilatation. Gallbladder: Surgically absent noting clips in the gallbladder fossa. Spleen: Normal in size and attenuation. Pancreas: The unenhanced pancreas is atrophic and grossly unremarkable. Adrenal glands: Unremarkable. Kidneys: The unenhanced kidneys are atrophic and without hydronephrosis. There are no renal calculi identified. There is no evidence of contour deforming renal mass lesion. Abdominal vasculature: The abdominal aorta is normal in course and caliber noting moderate atherosclerotic calcification. An infrarenal IVC filter is in place. Bowel: There are postoperative changes from partial gastrectomy with gastrojejunostomy. No bowel obstruction is seen. A duodenal diverticulum is incidentally noted. Fecal retention is present in the right colon. There is diastases of the rectus abdominis musculature with protrusion of small bowel loops in the upper abdomen. The appendix is normal as visualized. Peritoneum: There is no intraperitoneal free air or abdominal ascites. Lymphadenopathy: None. Pelvic viscera: The prostate gland is markedly enlarged and heterogeneous, measuring 6.3 cm in transverse diameter. The bladder is filled with excreted contrast. At least 2 large bladder calculi are identified and measure up to 1.4 cm. The bladder wall is thickened and trabeculated consistent with chronic outlet obstruction. Skeletal structures: The skeletal structures are heterogeneously osteopenic. Moderate lumbosacral spondylosis is observed. No lytic or blastic lesions are seen. Chronic posttraumatic deformity and postoperative changes identified in the left proximal femur. IMPRESSION: 1. Significantly suboptimal examination without IV contrast. The examination is also compromised by motion. 2. There are no acute infectious or inflammatory findings in the abdomen or pelvis. 3. There is no evidence of metastatic disease in the abdomen or pelvis on this unenhanced examination. 4. Cardiomegaly and small to moderate pleural effusions. 5. There are postoperative changes from partial gastrectomy with gastrojejunostomy formation. No bowel obstruction is seen. 6. Prostatomegaly with evidence of chronic bladder outlet obstruction. 7. Large bladder calculi are identified. 8. Additional findings as above. Electronically signed by: Saulo Patino M.D. 11/06/2017 1:57 PM Dictated Date/Time: 11/06/2017 1:48 PM
--- NOTE | 2017-11-06 14:43 | Cardiology Follow-Up ---
Subjective Date of Service: Nov 06, 2017. Pt evaluation today including: conversation w/ patient, physical exam, chart review, lab review, review of studies, review of inpatient medication list History of Present Illness This morning the patient claims to be feeling well. He is frustrated by an inability to urinate without catheterization. He has been minimally ambulatory. He does not describe any pain in his abdomen or at the site of his catheterization yesterday. He denies significant breathing trouble. He has been lying flat without dyspnea. Social History Smoking Status: Never Smoker History of Alcohol Use: Yes (QUIT 1986) Review of Systems Respiratory: No cough, No shortness of breath Cardiac: No orthopnea, No edema Per HPI. Patient claims to be urinating normally. He has not been aware of any palpitations or rapid heartbeats. Objective Vital Signs Past 12 Hours Date Time Temp Pulse Resp B/P (MAP) Pulse Ox O2 Delivery O2 Flow Rate FiO2 11/06/17 12:00 Room Air 11/06/17 11:51 36.5 65 18 116/60 (78) 95 Room Air 11/06/17 08:00 Room Air 11/06/17 07:48 36.7 69 18 124/69 (87) 96 11/06/17 04:08 36.5 72 18 130/74 (92) 95 Nasal Cannula 2.0 11/06/17 04:00 Nasal Cannula 2.0 Last Recorded Weight-Kilograms: 65.700 Physical Exam The patient is alert and oriented. Mood and affect appeared normal. He answered all questions appropriately. HEENT: Pupils are equal and reactive to light and accommodation. Extraocular movements are intact. The sclerae are anicteric. Neuro: Cranial nerves intact Neck: Patient's neck is supple. He has palpable carotid pulses bilaterally without bruits on auscultation. There is no evidence of jugular venous distention. The thyroid is not enlarged. Lungs: Clear to auscultation bilaterally. He has good air movement without use of accessory muscles. No rales wheezes or rhonchi. Cardiac: Heart demonstrates a regular rate and rhythm. Normal S1 and S2. Holosystolic murmur heard best at the axilla. Pulses: The patient has palpable radial pulses bilaterally that are equal in intensity. Site of the ulnar axis in the right wrist is without hematoma. Good perfusion in the hand. Extremities: There was no evidence of hypoperfusion. There is no cyanosis or clubbing. Mild peripheral edema of the lower extremities right worse than left Skin: I did not appreciate any rashes on examination today. Data Laboratory Results: Last 24 Hours Test 11/06/17 05:21 11/06/17 08:21 11/06/17 14:19 White Blood Count 4.15 K/uL Red Blood Count 4.17 M/uL Hemoglobin 12.8 g/dL Hematocrit 40.3 % Mean Corpuscular Volume 96.6 fL Mean Corpuscular Hemoglobin 30.7 pg Mean Corpuscular Hemoglobin Concent 31.8 g/dl RDW Standard Deviation 52.8 fL RDW Coefficient of Variation 15.1 % Platelet Count 175 K/uL Mean Platelet Volume 11.6 fL Activated Partial Thromboplast Time 43.8 SECONDS Partial Thromboplastin Ratio 1.7 Sodium Level 140 mmol/L Potassium Level 4.0 mmol/L Chloride Level 104 mmol/L Carbon Dioxide Level 32 mmol/L Anion Gap 4.0 mmol/L Blood Urea Nitrogen 32 mg/dl Creatinine 1.54 mg/dl Est Creatinine Clear Calc Drug Dose 35.1 ml/min Estimated GFR () 49.0 Estimated GFR (Non- 42.3 BUN/Creatinine Ratio 20.9 Random Glucose 84 mg/dl Calcium Level 10.2 mg/dl Phosphorus Level 3.6 mg/dl Iron Level 46 mcg/dl Ferritin 17.2 ng/ml Thyroid Stimulating Hormone (TSH) 1.270 uIu/ml Prothrombin Time 11.1 SECONDS Prothromb Time International Ratio 1.1 Telemetry reviewed: Telemetry demonstrated normal sinus rhythm without significant arrhythmia Cardiac catheterization performed yesterday revealed some stenosis in the 2nd diagonal branch but otherwise no obstructive lesions. Left ventricular filling pressures were normal. Assessment and Plan 1. Acute decompensated systolic heart failure: Currently well compensated. Filling pressures were normal at the time of catheterization yesterday. He is not appear to require any additional diuresis at this point. I think his weight can be monitored and Lasix given on a p.r.n. basis. 2. Cardiomyopathy: Unclear etiology. Laboratory studies obtained this morning were all normal. He could have an infiltrative cardiomyopathy but his overall ventricular size is normal. No need for revascularization based on his angiography. Will continue with medical therapy. I think after today we could attempt a trial of low-dose Rl inhibition and monitor his renal function electrolytes.
[2017-11-06 14:52] LABS: PTT PATIENT 63.4 SECONDS (21.0-31.0)
[2017-11-06] MEDS ORDERED: WARFARIN SOD 5 MG TAB PO SCH (16:00)
[2017-11-06] MEDS: ENOXAPARIN 80 MG/0.8 ML SYR SQ SCH (18:10)
[2017-11-06] MEDS ORDERED: ENOXAPARIN 1 MG/KG SQ SCH (21:00)
[2017-11-06] MEDS: AMITRIPTYLINE HCL 50 MG TAB PO SCH (21:18)
--- NOTE | 2017-11-06 23:04 | Progress Note ---
Subjective Date of Service: Nov 06, 2017. Subjective Pt evaluation today including: conversation w/ patient, conversation w/ family ( at bedside), physical exam, chart review, lab review, review of studies ( CT abd/pelvis, cxr), review of inpatient medication list Pain: none voiced PO Intake: eating fair Voiding: no voiding problems he has not needed I/O cath for urinary retention in over 24 hours he is sleepy during my visit this AM, but reports that is not uncommon at home tele stable overnight he overall feels good accepted at [facility] Problem List Medical Problems: (1) Chest pain Status: Acute (2) Chest pain, precordial Status: Acute (3) CHF (congestive heart failure) Status: Acute (4) Closed head injury Status: Acute (5) Contusion Status: Acute (6) DVT (deep venous thrombosis) Status: Acute (7) DVT (deep venous thrombosis) Status: Acute (8) Fall Status: Acute (9) Fall in home Status: Acute (10) Forehead contusion Status: Acute (11) Groin pain Status: Acute (12) Intertrochanteric fracture of left hip Status: Acute (13) Joint effusion of knee Status: Acute (14) Knee effusion, left Status: Acute (15) Knee pain Status: Acute (16) Neck muscle strain Status: Acute (17) New onset of congestive heart failure Status: Acute Review of Systems Respiratory: No shortness of breath, No dyspnea on exertion Cardiac: No chest pain, No edema Abdomen: No pain Objective Vital Signs Date Time Temp Pulse Resp B/P (MAP) Pulse Ox O2 Delivery O2 Flow Rate FiO2 11/06/17 20:20 36.9 73 16 104/69 (81) 93 Room Air 11/06/17 16:00 Room Air 11/06/17 14:54 37.0 70 16 105/63 (77) 96 Room Air 11/06/17 12:00 Room Air 11/06/17 11:51 36.5 65 18 116/60 (78) 95 Room Air 11/06/17 08:00 Room Air 11/06/17 07:48 36.7 69 18 124/69 (87) 96 11/06/17 04:08 36.5 72 18 130/74 (92) 95 Nasal Cannula 2.0 11/06/17 04:00 Nasal Cannula 2.0 11/06/17 00:11 36.5 68 16 144/76 (98) 93 Nasal Cannula 2.0 11/05/17 23:59 Nasal Cannula 2.0 Physical Exam General Appearance: no apparent distress ENT: pharynx normal Neck: no JVD Respiratory/Chest: no respiratory distress, no accessory muscle use, + decreased breath sounds (bases) Cardiovascular: regular rate, rhythm, no gallop, + systolic murmur (2/6 LSB) Abdomen: normal bowel sounds, non tender, soft, no organomegaly Extremities: no pedal edema Neurologic/Psychiatric: + pertinent finding (sleepy today but did awaken to his name being called) Laboratory Results Last 24 Hours Test 11/06/17 05:21 11/06/17 08:21 11/06/17 14:19 White Blood Count 4.15 K/uL Red Blood Count 4.17 M/uL Hemoglobin 12.8 g/dL Hematocrit 40.3 % Mean Corpuscular Volume 96.6 fL Mean Corpuscular Hemoglobin 30.7 pg Mean Corpuscular Hemoglobin Concent 31.8 g/dl RDW Standard Deviation 52.8 fL RDW Coefficient of Variation 15.1 % Platelet Count 175 K/uL Mean Platelet Volume 11.6 fL Activated Partial Thromboplast Time 43.8 SECONDS 63.4 SECONDS Partial Thromboplastin Ratio 1.7 2.4 Sodium Level 140 mmol/L Potassium Level 4.0 mmol/L Chloride Level 104 mmol/L Carbon Dioxide Level 32 mmol/L Anion Gap 4.0 mmol/L Blood Urea Nitrogen 32 mg/dl Creatinine 1.54 mg/dl Est Creatinine Clear Calc Drug Dose 35.1 ml/min Estimated GFR () 49.0 Estimated GFR (Non- 42.3 BUN/Creatinine Ratio 20.9 Random Glucose 84 mg/dl Calcium Level 10.2 mg/dl Phosphorus Level 3.6 mg/dl Iron Level 46 mcg/dl Ferritin 17.2 ng/ml Thyroid Stimulating Hormone (TSH) 1.270 uIu/ml Prothrombin Time 11.1 SECONDS Prothromb Time International Ratio 1.1 Assessment and Plan 77yo male with: 1. acute systolic CHF - acute decompensation resolved. IV lasix has been d/c. Chronicity & cause of systolic CHF is unknown. The LV dysfunction is severe (15 -20%). s/p heart cath with only 1 branch vessel with disease otherwise normal cath cont BB labs AM daily weights appreciate Dr. Joyner's assistance 20mg of po lasix at d/c?? 2. b/l pleural effusions, right quite large with possible loculation - s/p thoracentesis w/ 1200cc out - transudative, probably from CHF; cytologies negative. appreciate thoracic surgery assistance 3. h/o prior VTE, now with acute DVT LLE - he developed the new DVT despite being on eliquis. This treatment failure is concerning in light of his malignancy history. Stopped eliquis; now on heparin infusion with coumadin. Pt/ not amenable to long-term lovenox use. Will stop heparin today; place on 1mg/kg lovenox for bridging purposes. Cont coumadin 5mg daily with INR in am 4. CKD stage 3 - creatinine largely stable; BMP am. 5. h/o gastric cancer s/p surgery at [facility] [place] in 2015 - noted. In light of Fe deficiency, new DVT, etc -- elected to obtain CT abd/pelvis today - no evidence of recurrence, but will recommend after d/c to f/u with [facility] for consideration of EGD. last EGD was 11/2016 - no recurrent cancer. 6. positive troponin - doubt ACS - no ischemic symptoms. Likely myocardial demand ischemia in setting of #1 above. 7. hypercalcemia - chronic - due to primary hyperparathyroidism. Patient aware of this and has known about such for several years. 8. early satiety - concerning for gastric cancer recurrence - see above re: CT abd/pelvis and possible EGD in future. 9. h/o asthma - not active at this time. 10. urinary retention - s/p I/O cath this admission, but voiding ok now. Cont flomax. 11. Fe def anemia - patient has received IV iron in the past. Consider such while here. Referral back to [facility] after d/c. 12. mild cognitive impairment (suspected) - confirms he has memory problems at home. Follow. PT, OT consults recommending rehab -- accepted at [facility]; d/c there tomorrow Discharge planning: senior living facility
[2017-11-07 03:30] VITALS: BP 135/75; PULSE 74; TEMP 36.8; O2SAT 98
[2017-11-07 06:10] LABS: HEMATOCRIT 37.8 % (42-52); HEMOGLOBIN 11.9 g/dL (14.0-18.0); MEAN CELL VOLUME 95.5 fL (80-100); MEAN CORPUSCULAR HEMOGLOBIN 30.1 pg (25-34); MEAN CORPUSCULAR HGB CONC 31.5 g/dl (32-36); MEAN PLATELET VOLUME 11.2 fL (7.4-10.4); PLATELET COUNT 154 K/uL (130-400); RED CELL DISTRIBUTION WIDTH CV 14.9 % (11.5-14.5); RED CELL DISTRIBUTION WIDTH SD 51.6 fL (36.4-46.3); WHITE BLOOD COUNT 5.12 K/uL (4.8-10.8)
[2017-11-07 06:29] LABS: INR 1.3 (0.9-1.1)
[2017-11-07 06:40] LABS: CALCIUM 10.1 mg/dl (8.5-10.1); CREATININE 1.63 mg/dl (0.60-1.40); POTASSIUM 4.1 mmol/L (3.5-5.1)
[2017-11-07 08:04] VITALS: BP 128/74; PULSE 70; TEMP 36.4; O2SAT 96
[2017-11-07] MEDS: TAMSULOSIN HCL 0.4 MG CAP PO SCH (09:17)
[2017-11-07] MEDS: CYANOCOBALAMIN 100 MCG TAB (VIT B-12) PO SCH (09:17)
[2017-11-07] MEDS: FERROUS SULFATE 325 MG TAB PO SCH (09:18)
[2017-11-07] MEDS: METOPROLOL SUCC 25MG EXT REL TAB PO SCH (09:18)
[2017-11-07] MEDS: PANTOprazole SOD 40 MG TAB PO SCH (09:18)
[2017-11-07] MEDS: ENOXAPARIN 80 MG/0.8 ML SYR SQ SCH (09:18)
[2017-11-07] MEDS ORDERED: LVNIS80 SQ (10:33)
[2017-11-07] MEDS ORDERED: FURO40TA3 PO ×2 (10:33→10:41)
[2017-11-07] MEDS ORDERED: ACET-1047 PO (10:33)
[2017-11-07] MEDS ORDERED: CMD5 PO (10:33)
[2017-11-07] MEDS ORDERED: FRRS300 PO (10:33)
--- NOTE | 2017-11-07 10:34 | SURGERY PROGRESS NOTE ---
DATE: 11/07/2017 Mr. Rock was seen today on 11/07/2017. I performed a thoracentesis on him and drained him for [address] of his abdomen yesterday and he has a small amount of fluid on the right; however, I do not think this is clinically significant. This is a transudate. The cytology is negative. This is probably due to his left ventricular dysfunction. I would like to see Mr. Rock back in the office in 2 weeks. We will repeat a chest x-ray at that time. The patient does have a mass on the medial aspect of his right upper lobe. I discussed this with Dr. Blevins today. It really has not changed since 2016. I will keep an eye on that. We will get a CT [address], but at this point I certainly would not be offering this patient any intervention.
[2017-11-07] MEDS ORDERED: LSN25 PO (10:41)
--- NOTE | 2017-11-07 10:57 | Discharge Instructions ---
Discharge Instructions Date of Service Nov 07, 2017. Admission Reason for Admission: New Onset Of Congestive Heart Failure Discharge Discharge Diagnosis / Problem: Systolic CHF,Pleural effusion,Acute DVT Discharge Goals Goal(s): Improve disease control, Diagnostic testing, Therapeutic intervention Activity Recommendations Activity Level: Assistance Required Therapies: Physical Therapy, Occupational Therapy Shower/Bathe: no limitations . Additional Information Patient informed of condition: Yes Advance Directives: No DNR: Yes Level of Care: Skilled Communicable Disease: No Prognosis: Stable Oxygen at (LPM): 2 LNC Cerna Catheter: Yes (and needs trial of void in 6 days) Instructions / Follow-Up Instructions / Follow-Up Acute systolic CHF - acute decompensation resolved. IV lasix has been d/c'd. Chronicity & cause of systolic CHF is unknown. The LV dysfunction is severe (15 -20%). s/p heart cath with only 1 branch vessel with disease otherwise normal cath cont beta kush -add on low dose lisinopril check BMP in 2-3 days to monitor renal function and electrolytes daily weights appreciate Dr. Joyner's/Cardiology assistance- f/u with Cardiology in 1-2 weeks Will discontinue on lasix 40mg daily ONLY PRN weight gain > 2-3 lbs in a 24 hr period 2. b/l pleural effusions, right quite large with possible loculation - s/p thoracentesis w/ 1200cc out - transudative, probably from CHF; cytologies negative. appreciate thoracic surgery assistance RUL Pulmonary nodule 1.5 cm-followed with CT scans as outpt-has upcoming CT scan in 3 months with Gastric Surgeon 3. h/o prior VTE, now with acute DVT LLE - he developed the new DVT despite being on Eliquis. This treatment failure is concerning in light of his malignancy history. No evidence of recurrent disease on CT scans here Stopped eliquis; was on heparin infusion with coumadin. Now on Lovenox with coumadin and should overlap x 2 days with therapeutic INR, and then continue coumadin alone, goal INR 2-3 Pt/ not amenable to long-term lovenox use. -check PT/INR in 1 day 4. CKD stage 3 - creatinine largely stable; agile qa tester 1.63 on day of discharge -follow BMP in 2-3 days as starting ACEI 5. h/o gastric cancer s/p surgery at [facility] in 2015 - noted. Has a h/o poor iron absorption and has received IV infusions in the past. Follows with Montse Gurrola at [facility] and has appt in 2-3 weeks In light of Fe deficiency, new DVT, etc -- elected to obtain CT abd/pelvis - no evidence of recurrence, but will recommend after d/c to [facility] for consideration of EGD after discharge. last EGD was 11/2016 - no recurrent cancer. -started FeSO4 325mg po bid 6. positive troponin - doubt ACS - no ischemic symptoms. Likely myocardial demand ischemia in setting of #1 above. 7. hypercalcemia - chronic - due to primary hyperparathyroidism. Patient aware of this and has known about such for several years. Was supposed ot have parathyroidectomy but was cancelled due to his Surgeon dying. Now followed by PCP 8. early satiety - concerning for gastric cancer recurrence - see above re: CT abd/pelvis and possible EGD in future. 9. h/o asthma - not active at this time. 10. urinary retention - s/p multiple straight caths this admission, and then placement of Cerna the day prior to dc. Has prostamegaly on CT abd/pel - Cont flomax -continue Cerna x 6 more days and then trial of void, if fails, consider Urology follow up 11. Fe def anemia - patient has received IV iron in the past. Referral [facility] to [facility] after d/c. -see above 12. mild cognitive impairment (suspected) - confirms he has memory problems at home. Follow. PT, OT consults recommending rehab -- accepted at [facility]; d/c there today Current Hospital Diet Patient's current hospital diet: AHA Diet (Heart Healthy) Discharge Diet Recommended Diet: AHA Diet (Heart Healthy), Low Sodium Diet (2gm Na) Procedures Procedures Performed: CT Chest CT abdomen/pelvis Thoracentesis ECHO Cardiac catheterization Chest xrays Lower extremity venous DOppler Pending Studies Studies pending at discharge: no Physician Orders On Transfer IV Therapy: None Vital Signs: Daily Weigh: Daily Additional Orders: Check PT/INR in 1 day Check BMP in 2-3 days POLST Discussion: with POLST completion Laboratory Results Last 24 Hours Test 11/06/17 14:19 11/07/17 05:41 Activated Partial Thromboplast Time 63.4 SECONDS Partial Thromboplastin Ratio 2.4 White Blood Count 5.12 K/uL Red Blood Count 3.96 M/uL Hemoglobin 11.9 g/dL Hematocrit 37.8 % Mean Corpuscular Volume 95.5 fL Mean Corpuscular Hemoglobin 30.1 pg Mean Corpuscular Hemoglobin Concent 31.5 g/dl RDW Standard Deviation 51.6 fL RDW Coefficient of Variation 14.9 % Platelet Count 154 K/uL Mean Platelet Volume 11.2 fL Prothrombin Time 13.8 SECONDS Prothromb Time International Ratio 1.3 Sodium Level 137 mmol/L Potassium Level 4.1 mmol/L Chloride Level 102 mmol/L Carbon Dioxide Level 32 mmol/L Anion Gap 3.0 mmol/L Blood Urea Nitrogen 32 mg/dl Creatinine 1.63 mg/dl Est Creatinine Clear Calc Drug Dose 33.1 ml/min Estimated GFR () 45.8 Estimated GFR (Non- 39.5 BUN/Creatinine Ratio 19.9 Random Glucose 86 mg/dl Calcium Level 10.1 mg/dl Hemoglobin A1c Test 11/03/17 05:18 Range/Units Estimated Average Glucose 126 mg/dl Hemoglobin A1c 6.0 H 4.5-5.6 % Lipid Panel Test 11/03/17 05:18 Range/Units Triglycerides Level 56 0-150 mg/dl Cholesterol Level 135 0-200 mg/dl HDL Cholesterol 76 mg/dl Cholesterol/HDL Ratio 1.8 LDL Cholesterol, Calculated 48 mg/dl Medical Emergencies . Who to Call and When: Medical Emergencies: If at any time you feel your situation is an emergency, please call 911 immediately. . Non-Emergent Contact Non-Emergency issues call your: Primary Care Provider Call Non-Emergent contact if: you have any medication questions . . "Provider Documentation" section prepared by Radha Blevins. . Core Measure Problem Core Measures: None AMI Core Measures Reason no ASA as I/P: Treatment provided - N/A Reason no statin as I/P: Treatment provided - N/A
[2017-11-07 11:05] VITALS: BP 128/74; PULSE 70; TEMP 36.4; O2SAT 96
== END 2017-11-07 13:06 | DRG 286 ==
LOC: C.EDB 15:23 → C.2T 20:18 → ENRESERV 20:33
PROVIDERS: ADMIT Internal Medicine; ATTEND Family Medicine
PROC: B211YZZ Fluoroscopy of Multiple Coronary Arteries using Other Contrast (ICD-10-PCS; 2017-11-05)
PROC: 4A023N7 Measurement of Cardiac Sampling and Pressure, Left Heart, Percutaneous Approach (ICD-10-PCS; 2017-11-05)
PROC: 0W993ZX Drainage of Right Pleural Cavity, Percutaneous Approach, Diagnostic (ICD-10-PCS; principal; 2017-11-05 13:19)
DX: I13.0 Hypertensive heart and chronic kidney disease with heart failure and stage 1 through stage 4 chronic kidney disease, or unspecified chronic kidney disease (principal); I50.21 Acute systolic (congestive) heart failure; J90 Pleural effusion, not elsewhere classified; M79.89 Other specified soft tissue disorders; N18.3 Chronic kidney disease, stage 3 (moderate); J44.9 Chronic obstructive pulmonary disease, unspecified; K21.9 Gastro-esophageal reflux disease without esophagitis; D50.9 Iron deficiency anemia, unspecified; I42.9 Cardiomyopathy, unspecified; I34.0 Nonrheumatic mitral (valve) insufficiency; G31.84 Mild cognitive impairment of uncertain or unknown etiology; E21.3 Hyperparathyroidism, unspecified; N40.1 Benign prostatic hyperplasia with lower urinary tract symptoms; R33.8 Other retention of urine; Z79.01 Long term (current) use of anticoagulants; Z79.899 Other long term (current) drug therapy; Z85.09 Personal history of malignant neoplasm of other digestive organs; Z86.718 Personal history of other venous thrombosis and embolism; Z87.891 Personal history of nicotine dependence

== ENCOUNTER → 2017-11-20 | Outpatient (CLI) | payer OTHER ==
[~2017-11-20] MED LIST changes: +ACET-1047 PO; -APIX1TAB3 PO; +CMD5 PO; +FRRS300 PO; +LSN25 PO; +LVNIS80 SQ
--- NOTE | 2017-11-20 10:05 | DIAGNOSTIC IMAGING REPORT ---
CHEST 2 VIEWS ROUTINE CLINICAL HISTORY: 77 years-old Male presenting with J90 pleural effusion. TECHNIQUE: PA and lateral views of the chest were obtained. COMPARISON: 11/06/2017. FINDINGS: The patient is JAMES rotated with exaggerated thoracic kyphosis. Atherosclerosis of the aortic arch. Cardiac silhouette mildly enlarged, unchanged. Significant interval decrease in bibasilar opacities with improved aeration. Small bilateral pleural effusions persists. No new focal lung opacity. No pneumothorax. Osteopenia suggested. Numerous surgical clips project over the epigastrium. Partially visualized IVC filter. IMPRESSION: 1. Small bilateral pleural effusions persist though significantly improved aeration of the lung bases with decrease infiltrates evident. Electronically signed by: Mathieu Best M.D. 11/20/2017 10:04 AM Dictated Date/Time: 11/20/2017 10:02 AM
== END ==
LOC: C.RAD1850 09:29
PROVIDERS: ATTEND Surgery
DX: J90 Pleural effusion, not elsewhere classified (principal)

== ENCOUNTER → 2017-12-06 | Outpatient (CLI) | payer OTHER ==
[2017-12-06 12:24] LABS: BASO % 0.4 %; BASO ABS # 0.02 K/uL (0-0.2); EOS % 2.9 %; EOS ABS # 0.16 K/uL (0-0.5); HEMATOCRIT 41.8 % (42-52); HEMOGLOBIN 13.3 g/dL (14.0-18.0); IG# 0.01 K/uL (0.00-0.02); LYMPH % 23.4 %; LYMPH ABS # 1.28 K/uL (1.2-3.4); MEAN CELL VOLUME 95.7 fL (80-100); MEAN CORPUSCULAR HEMOGLOBIN 30.4 pg (25-34); MEAN CORPUSCULAR HGB CONC 31.8 g/dl (32-36); MEAN PLATELET VOLUME 11.7 fL (7.4-10.4); MONO % 6.4 %; MONO ABS # 0.35 K/uL (0.11-0.59); NEUT % 66.7 %; NEUT ABS # 3.64 K/uL (1.4-6.5); PLATELET COUNT 184 K/uL (130-400); RED CELL DISTRIBUTION WIDTH CV 15.8 % (11.5-14.5); WHITE BLOOD COUNT 5.46 K/uL (4.8-10.8)
[2017-12-06 12:32] LABS: ALBUMIN 2.7 gm/dl (3.4-5.0); BLOOD UREA NITROGEN 38 mg/dl (7-18); CALCIUM 10.3 mg/dl (8.5-10.1); CARBON DIOXIDE 29 mmol/L (21-32); CREATININE 1.52 mg/dl (0.60-1.40); GLUCOSE 84 mg/dl (70-99); PHOSPHORUS 3.1 mg/dl (2.5-4.9); SODIUM 137 mmol/L (136-145)
== END | disposition home or self-care (01) ==
LOC: C.LAB1850 09:30
PROVIDERS: ATTEND Internal Medicine Nephrology
DX: N18.3 Chronic kidney disease, stage 3 (moderate) (principal)